=== PATIENT | male | born 1980 | race Caucasian/White ===

== ENCOUNTER 2017-11-04 18:07 | Inpatient (IN) | payer OTHER ==
[~2017-11-04] VITALS: Ht 182.9 cm; Wt 194.7 kg
--- NOTE | 2017-11-04 18:08 | ED.ADGEN ---
Past History Past Medical History: Hypertension, Other Past Surgical History: No Surgical History Alcohol Use: None Drug Use: None Adult General Chief Complaint Chief Complaint "... I was getting really short of breath today... ".. " My legs are swollen... clear up to my groin..." HPI HPI Patient is a 37 year old male who presents with above hx and complaints increased dyspnea, shortness of breath, and fatigue. Patient has not followed by for some years. Possibly 8 years ago he had a stress test where he states nothing was found. Patient since that time is gaining more weight. Patient today was noted he was very short of breath just walking across the room. Patient denies any travel. Patient denies any ill contacts. Patient take anything for his hypertension. There is a family history of onset of cardiac disorders. Review of Systems Review of Systems Constitutional: Denies fever or chills [] Eyes: Denies change in visual acuity, redness, or eye pain [] HENT: Denies nasal congestion or sore throat [] Respiratory: Denies history of shortness of breath [] Cardiovascular: No additional information not addressed in HPI [] GI: Denies abdominal pain, nausea, vomiting, bloody stools or diarrhea [] : Denies dysuria or hematuria [] Musculoskeletal: Denies back pain or joint pain [] Integument: Denies rash or skin lesions [] Neurologic: Denies headache, sensory changes []complaints of generalized weakness Endocrine: Denies polyuria or polydipsia [] All other systems were reviewed and found to be within normal limits, except as documented in this note. Family History Family History Father had early onset of cardiac disorders. Current Medications Current Medications Current Medications Medications (Trade) Dose Ordered Sig/Jody Start Time Stop Time Status Last Admin Dose Admin Lactated Ringer's 1,000 ml @ 100 mls/hr Q10H 11/04/17 18:26 11/05/17 04:25 11/04/17 18:26 100 MLS/HR Allergies Allergies Allergies Coded Allergies Type Severity Reaction Last Updated Verified No Known Drug Allergies 03/08/14 No Physical Exam Physical Exam Constitutional: in acute distress, non-toxic appearance. [] HENT: Normocephalic, atraumatic, bilateral external ears normal, oropharynx moist, no oral exudates, nose normal. [] Eyes: PERRLA, EOMI, conjunctiva normal, no discharge. [] Neck: Normal range of motion, no tenderness, supple, no stridor. [] Cardiovascular: Tachycardia Heart rate regular rhythm, no murmur []PMI to the left Lungs & Thorax: Bilateral breath sounds equal at apex with scattered wheezes on auscultation [] Abdomen: Bowel sounds normal, soft, no tenderness, no masses, no pulsatile masses. [Morbidly obese Skin: Warm, dry, no erythema, no rash. [] Back: No tenderness, no CVA tenderness. [] Extremities: No tenderness, no cyanosis, no clubbing, ROM intact, edema to groin , Bigelow edema in ankles. Venous stasis changes. Neurologic: Alert and oriented X 3, normal motor function, normal sensory function, no focal deficits noted. [] Psychologic: Affect anxious, judgement normal, mood normal. [] Current Patient Data Vital Signs Vital Signs Date Time Temp Pulse Resp B/P (MAP) Pulse Ox O2 Delivery O2 Flow Rate FiO2 11/04/17 18:15 97.1 99 20 97 Room Air EKG EKG My interpretation EKG shows a sinus rhythm at 93 bpm. There is bibasilar P waves and leftward axis. No findings acute STEMI with contralateral changes.[] Radiology/Procedures Radiology/Procedures My interpretation of CXR shows cardiomegaly, increased cephalization, findings consistent with CHF[] Course & Med Decision Making Course & Med Decision Making Pertinent Labs and Imaging studies reviewed. (See chart for details) Presentation, testing and treatment plan with Dr. Macario- will admit for further eval. and tx. [] Final Impression Final Impression 1. Accelerated HTN 2. Dyspnea 3. Obesity Hypoventilation Syndrome 4. Sleep Apnea[] 5. CHF- BNP 4128 6. Elevated Creat. 7. Morbid Obesity Dragon Disclaimer Dragon Disclaimer This electronic medical record was generated, in whole or in part, using a voice recognition dictation system. MATHEW AVILES MD Nov 04, 2017 18:08
[2017-11-04] MEDS ORDERED: IV RINGERS SOLUTION,LACTATED 1,000 ML IV SCH (18:26)
--- NOTE | 2017-11-04 18:29 | EKG ---
[address] [address] Test Date: 2017-11-04 Test Time: 18:24:29 Pat Name: HUE CLEMONS Department: Room: Gender: M Web Ui Developer: LINDA : 1980 Requested By: MATHEW AVILES Order Number: [id number] Reading MD: Aaron Payan MD Measurements Intervals [place] Rate: 93 P: 35 SD: 172 QRS: -18 QRSD: 84 T: 79 QT: 340 QTc: 425 Interpretive Statements SINUS RHYTHM Electronically Signed On 11-05-2017 10:50:48 CDT by Aaron Payan MD
[2017-11-04] MEDS ORDERED: FUROSEMIDE 40 MG/4 ML VIAL IVP ONE ×2 (18:45→19:30)
[2017-11-04] MEDS ORDERED: ASPIRIN 81 MG TAB.CHEW PO ONE (18:45)
[2017-11-04] MEDS ORDERED: METOPROLOL TARTRATE 5 MG/5 ML VIAL. IV ONE (18:45)
[2017-11-04] MEDS ORDERED: NITROGLYCERIN OINT 1 GM PACKET. TP ONE (18:45)
[2017-11-04 19:00] LABS: BASO # 0.1 x10^3/uL (0.0-0.2); BASO % 1 % (0-3); EOS # 0.1 x10^3/uL (0.0-0.7); EOS % 2 % (0-3); HEMATOCRIT 45.8 % (39.0-53.0); LYMPH % 15 % (24-48); MEAN CORPUSCULAR HEMOGLOBIN 27 pg (25-35); MEAN CORPUSCULAR HGB CONC 33 g/dL (31-37); MEAN CORPUSCULAR VOLUME 82 fL (79-100); MONO # 0.6 x10^3/uL (0.0-1.1); MONO % 9 % (0-9); NEUT # 4.9 x10^3uL (1.8-7.7); NEUT % 73 % (31-73); PLATELET COUNT 279 x10^3/uL (140-400); RED CELL DISTRIBUTION WIDTH 16.2 % (11.5-14.5); WHITE BLOOD COUNT 6.7 x10^3/uL (4.0-11.0)
[2017-11-04 19:22] LABS: ALBUMIN 3.6 g/dL (3.4-5.0); ALK PHOS 69 U/L (46-116); ALT (SGPT) 14 U/L (16-63); ANION GAP 6 (6-14); AST (SGOT) 14 U/L (15-37); BLOOD UREA NITROGEN 13 mg/dL (8-26); CALCIUM 8.9 mg/dL (8.5-10.1); CARBON DIOXIDE 28 mmol/L (21-32); CHLORIDE 105 mmol/L (98-107); CREATININE 1.4 mg/dL (0.7-1.3); DIRECT BILIRUBIN 0.2 mg/dL (0.0-0.2); GFR 56.4; GLUCOSE 105 mg/dL (70-99); LIPASE 77 U/L (73-393); MAGNESIUM 1.9 mg/dL (1.8-2.4); POTASSIUM 4.2 mmol/L (3.5-5.1); SODIUM 139 mmol/L (136-145); TOTAL BILIRUBIN 1.1 mg/dL (0.2-1.0)
--- NOTE | 2017-11-04 20:45 | NUR ---
PT ARRIVED TO THE UNIT AT APPROXIMATELY 2044, FROM ED, ACCOMPANIED BY STAFF MEMBERS. PT IS ALERT AND ORIENT TIMES FOUR. OSORIO/ DENIES PAIN. PT'S WT TOTALS 214 KG. LOWER EXTREMITIES WERE ASSESSED BEING LEATHERY/DUSKY AND EDEMATOUS. GENERALIZED EDEMA PRESENT. PT C/O LOWER ABD AREA BEING "TIGHT AND HARD". PT HAS HAD SOME FLUID RETENTION, IVP LASIX GIVEN WITH MINIMAL RESULTS. SR PER MONITOR. BP WAS ELEVATED UPON ARRIVAL BUT DID TREND DOWNWARDS AFTER GETTING SETTLED. DENIES N/V. GOES GET SOB WITH EXERTION, SLOW TO RECOVER TO BASE LINE. CARDIO CONSULT PENDING FOR THE AM. PT REMAIN NPO UNTIL AFTER SEEING CV. CURRENTLY, SLOW PROGRESS TOWARDS DC GOALS. WILL CONTINUE TO MONITOR.
[2017-11-04 20:46] VITALS: BP 219/107
[2017-11-04] MEDS: ENOXAPARIN ** NOTE DOSE ** SYRINGE SQ SCH (21:00)
[2017-11-04 21:07] LABS: AMPHETAMINE/METHAMPHETAMINE NEG (NEG); BARBITURATES NEG (NEG); BENZODIAZEPINES NEG (NEG); CANNABINOIDS NEG (NEG); COCAINE NEG (NEG); METHADONE NEG (NEG); OPIATES NEG (NEG); PHENCYCLIDINE NEG (NEG)
[2017-11-04 21:25] VITALS: BP 202/96
[2017-11-04 21:27] LABS: BILIRUBIN,URINE NEG (NEG); CLARITY,URINE CLEAR; COLOR,URINE STRAW; GLUCOSE,URINE NEG (NEG); NITRITE,URINE NEG (NEG); UROBILINOGEN,URINE 0.2 mg/dL (0.2 mg/dL)
[2017-11-04 21:28] LABS: BACTERIA,URINE 0 /HPF (0-FEW); HYALINE CASTS, URINE MOD /HPF; SQUAMOUS EPITHELIAL CELL,UR FEW /LPF; WBC,URINE OCC /HPF (0-4)
[2017-11-04 23:35] VITALS: BP 187/74
[2017-11-05] VITALS (18 sets, daily range): BP systolic 136–187; BP diastolic 66–124
[2017-11-05] MEDS ORDERED: ASPI-612 PO (01:13)
--- NOTE | 2017-11-05 04:50 | NUR ---
Naima DRAKE WAS NOTIFIED OF PT'S BP (185/122). ORDER RECEIVED FOR LABETALOL. NURSING INTERVENTION FOR RECHECK OF BP TWO HOURS POST PO LABETALOL...SEE ORDERS
[2017-11-05] MEDS: LABETALOL HCL 100 MG TABLET PO SCH ×4 (05:03→21:04)
[2017-11-05 06:18] LABS: BASO % 1 % (0-3); CALCIUM 8.7 mg/dL (8.5-10.1); CREATININE 1.3 mg/dL (0.7-1.3); EOS # 0.1 x10^3/uL (0.0-0.7); EOS % 2 % (0-3); GFR 61.5; HEMATOCRIT 41.6 % (39.0-53.0); HEMOGLOBIN 13.6 g/dL (13.0-17.5); LYMPH # 0.9 x10^3/uL (1.0-4.8); LYMPH % 14 % (24-48); MEAN CORPUSCULAR HEMOGLOBIN 27 pg (25-35); MEAN CORPUSCULAR HGB CONC 33 g/dL (31-37); MEAN CORPUSCULAR VOLUME 81 fL (79-100); MONO # 0.8 x10^3/uL (0.0-1.1); MONO % 12 % (0-9); NEUT # 4.7 x10^3uL (1.8-7.7); NEUT % 71 % (31-73); PLATELET COUNT 248 x10^3/uL (140-400); POTASSIUM 3.4 mmol/L (3.5-5.1); RED BLOOD COUNT 5.13 x10^6/uL (4.30-5.70); RED CELL DISTRIBUTION WIDTH 16.3 % (11.5-14.5); WHITE BLOOD COUNT 6.7 x10^3/uL (4.0-11.0)
--- NOTE | 2017-11-05 06:26 | NUR ---
CARDIOLOGY CONSULT CALLED TO DR. LIMA. L/M WITH ANSWERING SERVICE, AWAITING CALL BACK.
--- NOTE | 2017-11-05 07:59 | RAD ---
Chest, 2 views, 11/04/2017: HISTORY: Dyspnea The heart is enlarged. The pulmonary vascularity is congested. There are hazy perihilar opacities with loss of vascular margination suggesting mild perihilar-perivascular pulmonary edema. No pleural fluid is seen. IMPRESSION: Congestive heart failure with mild parahilar-perivascular pulmonary edema. Electronically signed by: Wale Downing MD (11/05/2017 7:56 AM) [facility]
--- NOTE | 2017-11-05 08:30 | NUR ---
Patient arrived from [facility] Med/Surg floor. Report received from Pepper Patel RN. Patient placed into bed, full complement of monitors placed and assessment performed. Awaiting Diltiazem gtt from Pharmacy.
[2017-11-05] MEDS ORDERED: dilTIAZem VIAL 125 MG in IV DEXTROSE 5% 100 ML IV PRN (09:00)
--- NOTE | 2017-11-05 09:00 | NUR ---
NSG NOTE; TRANSFER TO ICU PT RECEIVED LABATOLOL AT 0500 FOR ELEVATED BP WITH NO RESULTS. BP 183/[address] STOVALL NOTIFIED AND ORDERS TRANSFER TO ICU WITH SANCHEZ IVY. REPORT CALLED TO ANGELINA RN AT 0822 PT TRANSFERRED TO ICU 3 AT 0832.
--- NOTE | 2017-11-05 09:33 | PDOC2 ---
RADHA SANTIAGO APRN 11/05/17 0933: CONSULT Date of Admission DATE: 11/05/17 TIME: 09:33 Reason for Consult: chf Problem List Problems Medical Problems: (1) Dyspnea Status: Acute History of Present Illness Mr Garcia is a morbidly obese 37 year old male who presented with shortness of breath. He reports that he has dyspnea on exertion at baseline but symptoms had worsened over the last couple weeks. Yesterday he took out the trash and was unable to catch his breath for over an hour so came to ED. He reports normally using 1-2 pillows for comfort but needing 1 more over the last couple weeks. He has chronic edema in his extremities but reports increase in legs as well as abdomen over the last 2 weeks. He denies chest pain, palpitations, lightheadedness or syncope. He denies any recent illness. Past Medical History he denies any significant history, takes no medications and has not seen a primary provider in several years Past Surgical History: Tonsillectomy Family History HTN, HLD, possible atrial fibrillation Social History He denies smoking, ETOH or illicit drugs Current Medications Current Medications Aspirin (Children'S Aspirin) 324 mg 1X ONCE PO Last administered on 11/04/17at 18:41; Start 11/04/17 at 18:45; Stop 11/04/17 at 18:46; Status DC Lactated Ringer's 1,000 ml @ 100 mls/hr Q10H IV Last administered on 11/04/17at 18:26; Start 11/04/17 at 18:26; Stop 11/05/17 at 04:25; Status DC Furosemide (Lasix) 40 mg 1X ONCE IVP Last administered on 11/04/17at 18:48; Start 11/04/17 at 18:45; Stop 11/04/17 at 18:46; Status DC Nitroglycerin (Nitro-Bid Oint) 1 inch 1X ONCE TP Last administered on at 18:44; Start 11/04/17 at 18:45; Stop 11/04/17 at 18:46; Status DC Metoprolol Tartrate (Lopressor Vial) 5 mg 1X ONCE IV Last administered on at 18:46; Start 11/04/17 at 18:45; Stop 11/04/17 at 18:46; Status DC Enoxaparin Sodium (Lovenox 150mg Syringe) 150 mg Q12HR SQ Last administered on 11/04/17at 21:00; Start 11/04/17 at 21:00 Aspirin (Children'S Aspirin) 81 mg DAILY PO ; Start 11/05/17 at 09:00 Furosemide (Lasix) 40 mg 1X ONCE IVP Last administered on 11/04/17at 21:37; Start 11/04/17 at 19:30; Stop 11/04/17 at 19:31; Status DC Labetalol HCl (Trandate) 100 mg TID PO Last administered on 11/05/17at 05:03; Start 11/05/17 at 05:00 Diltiazem HCl 125 mg/Dextrose 125 ml @ 5 mls/hr CONT PRN IV SEE I/O RECORD; Start 11/05/17 at 09:00 Active Scripts Active Reported Aspirin Ec (Aspirin) 81 Mg Tablet. 1 Tab PO DAILY Allergies: Coded Allergies: No Known Drug Allergies (Unverified , 03/08/14) Review of System as per HPI General: Alert, Oriented X3, Cooperative, No acute distress, Other (morbidly obese) HEENT: Atraumatic, EOMI Lungs: Other (decreased bilaterally) Heart: Regular rate, Normal S1, Normal S2, Other (no obvious murmurs, no obvious gallops, clicks or rubs. Heart tones are muffeled. ) Abdomen: Normal bowel sounds, No tenderness, Other (abdomen firm and obese) Extremities: No cyanosis, Other (Chronic non pitting edema with venous stasis changes bilateral lower extremities. ) Neuro: Normal speech, Strength at 5/5 X4 ext Psych/Mental Status: Mental status NL, Mood NL VITALS Vital Signs Date Time Temp Pulse Resp B/P (MAP) Pulse Ox O2 Delivery O2 Flow Rate FiO2 11/05/17 05:03 80 187/122 11/05/17 04:54 98.0 18 95 Room Air Labs Laboratory Tests Test 11/04/17 18:39 11/04/17 20:03 11/05/17 05:48 White Blood Count 6.7 x10^3/uL (4.0-11.0) 6.7 x10^3/uL (4.0-11.0) Red Blood Count 5.60 x10^6/uL (4.30-5.70) 5.13 x10^6/uL (4.30-5.70) Hemoglobin 15.0 g/dL (13.0-17.5) 13.6 g/dL (13.0-17.5) Hematocrit 45.8 % (39.0-53.0) 41.6 % (39.0-53.0) Mean Corpuscular Volume 82 fL (79-100) 81 fL (79-100) Mean Corpuscular Hemoglobin 27 pg (25-35) 27 pg (25-35) Mean Corpuscular Hemoglobin Concent 33 g/dL (31-37) 33 g/dL (31-37) Red Cell Distribution Width 16.2 % (11.5-14.5) 16.3 % (11.5-14.5) Platelet Count 279 x10^3/uL (140-400) 248 x10^3/uL (140-400) Neutrophils (%) (Auto) 73 % (31-73) 71 % (31-73) Lymphocytes (%) (Auto) 15 % (24-48) 14 % (24-48) Monocytes (%) (Auto) 9 % (0-9) 12 % (0-9) Eosinophils (%) (Auto) 2 % (0-3) 2 % (0-3) Basophils (%) (Auto) 1 % (0-3) 1 % (0-3) Neutrophils # (Auto) 4.9 x10^3uL (1.8-7.7) 4.7 x10^3uL (1.8-7.7) Lymphocytes # (Auto) 1.0 x10^3/uL (1.0-4.8) 0.9 x10^3/uL (1.0-4.8) Monocytes # (Auto) 0.6 x10^3/uL (0.0-1.1) 0.8 x10^3/uL (0.0-1.1) Eosinophils # (Auto) 0.1 x10^3/uL (0.0-0.7) 0.1 x10^3/uL (0.0-0.7) Basophils # (Auto) 0.1 x10^3/uL (0.0-0.2) 0.0 x10^3/uL (0.0-0.2) Prothrombin Time 11.6 SEC (9.4-11.4) Prothromb Time International Ratio 1.1 (0.9-1.1) Activated Partial Thromboplast Time 28 SEC (23-33) D-Dimer (Bella) 0.59 mg/L (0.00-0.50) Sodium Level 139 mmol/L (136-145) 132 mmol/L (136-145) Potassium Level 4.2 mmol/L (3.5-5.1) 3.4 mmol/L (3.5-5.1) Chloride Level 105 mmol/L (98-107) 101 mmol/L (98-107) Carbon Dioxide Level 28 mmol/L (21-32) 30 mmol/L (21-32) Anion Gap 6 (6-14) 1 (6-14) Blood Urea Nitrogen 13 mg/dL (8-26) 12 mg/dL (8-26) Creatinine 1.4 mg/dL (0.7-1.3) 1.3 mg/dL (0.7-1.3) Estimated GFR (Cockcroft-Gault) 56.4 61.5 Glucose Level 105 mg/dL (70-99) 98 mg/dL (70-99) Calcium Level 8.9 mg/dL (8.5-10.1) 8.7 mg/dL (8.5-10.1) Magnesium Level 1.9 mg/dL (1.8-2.4) Total Bilirubin 1.1 mg/dL (0.2-1.0) Direct Bilirubin 0.2 mg/dL (0.0-0.2) Aspartate Amino Transf (AST/SGOT) 14 U/L (15-37) Alanine Aminotransferase (ALT/SGPT) 14 U/L (16-63) Alkaline Phosphatase 69 U/L (46-116) Creatine Kinase 35 U/L (39-308) Creatine Kinase MB (Mass) < 0.5 ng/mL (0.0-3.6) Creatine Kinase MB Relative Index 1.4 % (0-4) Troponin I Quantitative < 0.017 ng/mL (0-0.055) TO-Ydz-X-Type Natriuretic Peptide 4128 pg/mL (0-124) Total Protein 7.0 g/dL (6.4-8.2) Albumin 3.6 g/dL (3.4-5.0) Lipase 77 U/L (73-393) Urine Collection Type Unknown Urine Color Straw Urine Clarity Clear Urine pH 5.5 Urine Specific [place] <=1.005 Urine Protein Neg (NEG-TRACE) Urine Glucose (UA) Neg mg/dL (NEG) Urine Ketones (Stick) Neg mg/dL (NEG) Urine Blood Neg (NEG) Urine Nitrite Neg (NEG) Urine Bilirubin Neg (NEG) Urine Urobilinogen Dipstick 0.2 mg/dL (0.2 mg/dL) Urine Leukocyte Esterase Neg (NEG) Urine RBC 6-10 /HPF (0-2) Urine WBC Occ /HPF (0-4) Urine Squamous Epithelial Cells Few /LPF Urine Bacteria 0 /HPF (0-FEW) Urine Hyaline Casts Mod /HPF Urine Mucus Mod /LPF Urine Opiates Screen Neg (NEG) Urine Methadone Screen Neg (NEG) Urine Barbiturates Neg (NEG) Urine Phencyclidine Screen Neg (NEG) Urine Amphetamine/Methamphetamine Neg (NEG) Urine Benzodiazepines Screen Neg (NEG) Urine Cocaine Screen Neg (NEG) Urine Cannabinoids Screen Neg (NEG) Urine Ethyl Alcohol Neg (NEG) Images CXR - IMPRESSION: Congestive heart failure with mild parahilar-perivascular pulmonary edema. EKG - SR, LAD, NS T abn. Assessment/Plan 1. Acute heart failure - echo for LV function. continue diuresis. 2. Accelerated hypertension - add ACEI, Prn hydralazine and change cardizem to cardene drip as needed. Renal arterial duplex. 3. hypokalemia - replace 4. morbid obesity - weight reduction strongly encouraged. 5. venous stasis - eval outpatient Will continue diuresis, adjust antihypertensives as above, check echo and renal duplex, will check lipids, A1C, repeat trop. Further recs after echo. RIOS CORONA MD 11/05/17 1407: CONSULT Assessment/Plan Patient seen and examined. Agree with [facility]'s assessment and plan. Continue diuresis for congestive heart failure most probably acute on chronic diastolic We will titrate oral antihypertensives and wean Cardene off as tolerated Check 2-D echo to assess LV systolic function Replace potassium Plan outpatient evaluation for venous insufficiency Thank you for your consultation RADHA SANTIAGO APRN Nov 05, 2017 09:33 RIOS CORONA MD Nov 05, 2017 14:07
[2017-11-05] MEDS ORDERED: hydrALAZINE 20 MG/ML VIAL. IV PRN (09:45)
[2017-11-05] MEDS: POTASSIUM CHLORIDE 20 MEQ TABLET.ER. PO SCH ×2 (10:01→21:04)
[2017-11-05] MEDS: LISINOPRIL 10 MG TABLET PO SCH (10:02)
[2017-11-05] MEDS: ASPIRIN 81 MG TAB.CHEW PO SCH (10:02)
[2017-11-05] MEDS: FUROSEMIDE 40 MG/4 ML VIAL IVP SCH ×2 (10:03→14:10)
[2017-11-05] MEDS: ENOXAPARIN ** NOTE DOSE ** SYRINGE SQ SCH ×2 (10:03→21:05)
--- NOTE | 2017-11-05 12:20 | HP ---
ADMIT DATE: 11/05/2017 HISTORY OF PRESENT ILLNESS: The patient is a 37-year-old male patient, who came to the Emergency Room complaining of increased shortness of breath, fatigue. He apparently has not seen any doctor for almost 8 years. He normally has some shortness of breath on exertion that usually resolves by the time he sits for few seconds, but yesterday he went out to take the trash out and he could not get his breathing back. He was brought to the Emergency Room, was found to have extremely high blood pressure. His chest x-ray showed that the heart is enlarged. Pulmonary vascularity is congested. There are hazy perihilar opacities with loss of vascular margination suggesting mild perihilar cardiovascular, pulmonary edema, but no pleural fluid. He was treated with IV Lasix as well IV metoprolol and nitro paste and was admitted for further evaluation and treatment. PAST MEDICAL HISTORY: Unremarkable apart from morbid obesity. PAST SURGICAL HISTORY: Significant for tonsillectomy. ALLERGIES: He has no known drug allergies. MEDICATIONS: He is only on baby aspirin. He denied taking any nonsteroidal anti-inflammatory medication. FAMILY HISTORY: He has one sister older and healthy. His brother at age of 28 because of drug overdose. Mother at age of 52 because of leukemia. His father is still alive at age of 69, is known to have hypertension, hyperlipidemia. SOCIAL HISTORY: He is single, no children. He does not smoke, does not drink alcohol or use any recreational drugs. He works in the [employer]. REVIEW OF SYSTEMS: The patient denied any blurring of vision, cataract, glaucoma or macular degeneration. Denied any earache, tinnitus or sensorineural deafness. Denied any nosebleeds, stuffy nose or postnasal drip. Denied any sore throat, sore tongue, toothache, hoarseness of voice or difficulty swallowing. Denied any nausea, vomiting, diarrhea or constipation. Denied any hematemesis, melena or hematochezia. Denied any dysuria, frequency or hematuria. Denied any chest pain. Did complain of shortness of breath. Denied any orthopnea or paroxysmal nocturnal dyspnea, although he stated that he sleeps usually on 2 pillows. PHYSICAL EXAMINATION: GENERAL: On arrival to the Emergency Room, he was slightly tachypneic. No pallor, jaundice, cyanosis or thyromegaly. No jugular venous distension. Bilateral lower limb edema. VITAL SIGNS: His heart rate was 99, blood pressure was 270/150, respiratory rate was 20, temperature was 97.1, oxygen saturation was 97% on room air. HEAD, EYES, EARS, NOSE AND THROAT: Showed normocephalic, atraumatic. NECK: Supple. HEART: Showed normal first and second heart sounds. No gallop, rub or murmur. CHEST: Clear to auscultation. No crepitation or rhonchi. ABDOMEN: Distended, soft, nontender. No guarding or rigidity. No organomegaly. All hernial orifice intact. Bowel sounds normal. NEUROLOGIC: He was awake, alert, responding appropriately. All cranial nerves intact. EXTREMITIES: He moves extremities without difficulty. PSYCHOLOGICAL: His affect is anxious. Judgment is normal with normal mood. LABORATORY DATA: Showed a white cell count of 6700, hemoglobin 15, hematocrit 45, MCV 82 and platelet count of 279,000. His chemistry showed a serum sodium 139, potassium 4.2, chloride 105, bicarbonate 28, anion gap of 6, BUN 13, creatinine 1.4, estimated GFR was 56 mL per minute. His glucose was 105, calcium was 8.9, magnesium was 1.9. Total bilirubin, AST, ALT, alkaline phosphatase were normal. Beta natriuretic peptide 4128. Total protein was 7, albumin was 3.6. Two sets of cardiac enzymes showed troponin to be less than 0.017. His chest x-ray showed that the heart is enlarged. The pulmonary vascularity congested. There are hazy perihilar opacities with loss of vascular margination suggesting mild perihilar perivascular pulmonary edema, no pleural fluid is seen. ASSESSMENT AND PLAN: The patient was admitted to [address] [place] [address] on telemetry bed to achieve a better control of blood pressure and to treat his congestive heart failure with most likely due to left ventricular diastolic dysfunction. We will also consult the cardiology team. YULISA STOVALL MD DR: MAYRA/la nena JOB#: [id number] / [id number]
--- NOTE | 2017-11-05 13:40 | NUR ---
Patient update. Cardiazem gtt DC'd at 1000. PO antihypertensives given at that time (see MAR) as well as IV Hydralazine. BP failed to decrease below SBP 160mmHG. A Cardene gtt was initiated at 5mg/hr. Patients BP decreased nicely into the 140-150 range. I was stopped around 1330 for a SBP of 109. His current pressures are in the 150's. He has continued to diurese, voiding nearly 3000 ml since his admission to the ICU.
[2017-11-05 14:55] LABS: THYROID STIM HORMONE (TSH) 5.309 uIU/mL (0.358-3.740)
[2017-11-05] MEDS ORDERED: PERFLUTREN PROTEIN-A MICROSPHR 0.22 MG/ML 3 ML VIAL. IV ONE (16:00)
--- NOTE | 2017-11-05 21:27 | PN ---
DATE: 11/05/2017 SUBJECTIVE: The patient is resting, slightly propped up in bed, no apparent distress, was admitted yesterday with hypertensive urgency as well as congestive heart failure. He was treated with IV antibiotic, IV fluid. He was treated with IV diuretics and also metoprolol and nitroglycerin patch without much improvement, and this morning, he was transferred to the ICU and was started on Cardene drip, was given also labetalol 100 mg 3 times a day and also we added hydralazine and lisinopril. He was also given IV Lasix and we did consult the cardiology team and arrangement is made for him to have an echocardiogram. So far, he has 2 sets of cardiac enzymes that ruled out myocardial infarction. When I examined him this morning, he was resting, slightly propped up in bed, in no apparent respiratory distress, awake, alert. On questioning him, he said that he is feeling much, much better than yesterday, now able to breathe easily. He has no chest pain. No cough or phlegm. His blood pressure is much better controlled around 160s systolic. PHYSICAL EXAMINATION: GENERAL: He looked well and was clearly in no apparent respiratory distress, pale, but no jaundice, cyanosis or thyromegaly. No jugular venous distention. No limb edema. VITAL SIGNS: His heart rate was 81, blood pressure was 173/87, temperature was 98.4, respiratory rate 28 and oxygen saturation was 95% on room air. HEAD, EYES, EARS, NOSE AND THROAT: Showed normocephalic, atraumatic. NECK: Supple. HEART: Showed normal first and second heart sounds. No gallop, rub or murmur. CHEST: Clear to auscultation. No crepitation or rhonchi. ABDOMEN: Distended, soft, nontender. NEUROLOGIC: He was awake, alert, responding appropriately. Cranial nerves intact. He moves extremities without difficulty. He ambulates without assistive devices. LABORATORY DATA: His serum sodium was 132, potassium 3.4, chloride 101, bicarbonate 30, anion gap of 1, BUN 12, creatinine 1.3, estimated GFR was 61 mL per minute. His glucose was 98, calcium was 8.7. Two sets of cardiac enzymes that ruled out myocardial infarction. His white cell count was 6700, hemoglobin 13.6, hematocrit 41.6, MCV 81 and platelet count 248,000. His prothrombin time 11.6, INR 1.1, aPTT . D-dimer was 0.59. Urinalysis was essentially unremarkable and urine toxicology screen was negative. ASSESSMENT: This is a 37-year-old male patient who was admitted with: 1. Accelerated hypertension. 2. Shortness of breath, most likely aawko-zh-swhhkmb diastolic congestive heart failure. 3. Morbid obesity hypoventilation syndrome, morbid obesity. He has also either chronic kidney disease or mvrph-[id number] kidney disease. PLAN: To continue with Cardene drip, titrate to maintain a mean arterial pressure of around 100 to start with, and gradually we are treating him with lisinopril and labetalol as well as hydralazine. Continue with IV Lasix. YULISA STOVALL MD DR: MAYRA/la nena JOB#: [id number] / [id number]
[2017-11-06] VITALS (13 sets, daily range): BP systolic 140–179; BP diastolic 67–114
[2017-11-06 06:32] LABS: HEMATOCRIT 40.7 % (39.0-53.0); HEMOGLOBIN 13.3 g/dL (13.0-17.5); RED BLOOD COUNT 5.02 x10^6/uL (4.30-5.70); RED CELL DISTRIBUTION WIDTH 16.5 % (11.5-14.5)
[2017-11-06 06:46] LABS: ALBUMIN 3.3 g/dL (3.4-5.0); CALCIUM 8.7 mg/dL (8.5-10.1); CREATININE 1.2 mg/dL (0.7-1.3); GFR 67.4; POTASSIUM 3.6 mmol/L (3.5-5.1); TOTAL BILIRUBIN 2.1 mg/dL (0.2-1.0); TOTAL PROTEIN 6.5 g/dL (6.4-8.2)
--- NOTE | 2017-11-06 07:16 | RAD ---
MR#: [id number] Date of Study: 11/05/2017 Ordering Physician: RADHA SANTIAGO, Referring Physician: YULISA STOVALL Tech: Dimple Lobo, WARNER, RVT, RTR APPROVED REPORT Patient Location: IN-PATIENT Indications Uncontrolled HTN Significantly limited study due to body habitus On the right the middle and distal renal arteries demonstrate mildly elevated velocities at a peak of 148 cm/s. The proximal right renal artery is not visualized. The left renal artery is not visualized . Finally, the abdominal aorta is also not able to be visualized despite positional changes. This is likely related to the patient's morbid obesity. The right kidney on limited grayscale images appears to be mildly enlarged suggestive of hydronephrosis. Again the left kidney was not visualized. The rig ht kidney measures 16.2 x 8 x 8 cm. Critical Notification Critical Value: No <Conclusion> Significantly limited study due to body habitus, consider CT scan of the abdomen with contrast and/or MRI for evaluation of renal artery stenosis and further evaluation of possible hydronephrosis of the right kidney. Clinical correlation. Signed by : Aaron Payan, Electronically Approved : 11/06/2017 07:16:10
--- NOTE | 2017-11-06 07:24 | CARD ---
MR#: [id number] Date of Study: 11/05/2017 Ordering Physician: RADHA SANTIAGO, Referring Physician: YULISA STOVALL, Tech: JARRED Del Cid APPROVED REPORT EXAM: Two-dimensional and M-mode echocardiogram with Doppler and color Doppler. Other Information Quality : Poor Technically limited study due to morbid obesity. INDICATION Dyspnea Hypertension/HCVD Congestive Heart Failure Echo Enhancing Agent Indication: Endocardial border delineation Agent/Amount Used: [id number] 2D DIMENSIONS Left Atrium(2D)4.8 (1.6-4.0cm)IVSd1.3 (0.7-1.1cm) LVDd7.2 (3.9-5.9cm)LVOT Diameter2.3 (1.8-2.4cm) PWd1.6 (0.7-1.1cm)LVDs5.8 (2.5-4.0cm) FS (%) 20.0 %SV93.4 ml LVEF(%)43.0 (>50%) Tricuspid Valve TR P. [id number] TR Peak Gr.[id number] LEFT VENTRICLE The Left Ventricle is mildly dilated. There is moderate concentric left ventricular hypertrophy. The systolic function is moderately impaired. The Ejection Fraction is grossly 40%. Significantly limited images despite contrast use. Moderate global hypokinesis. RIGHT VENTRICLE The right ventricle is not well visualized. ATRIA The left atrium is moderately dilated. The right atrium is not well visualized. Atrial septum not wel l visualized. AORTIC VALVE The aortic valve is mildly calcified. There is no significant aortic valvular stenosis. There is no a ortic valvular vegetation. MITRAL VALVE The mitral valve is not well visualized. There is no mitral valve stenosis. Doppler and Color Flow re vealed no mitral valve regurgitation noted. TRICUSPID VALVE The tricuspid valve is not well visualized. Doppler and Color Flow revealed trace tricuspid regurgita tion. There is moderate pulmonary hypertension. PASP is 56 mmHg. There is no tricuspid valve stenosis . PULMONIC VALVE The pulmonic valve is not well visualized. GREAT VESSELS The aortic root is not well visualized. Due to poor image quality, the IVC could not be assessed. PERICARDIAL EFFUSION There is no evidence of significant pericardial effusion. Critical Notification Critical Value: No <Conclusion> The systolic function is moderately impaired. The Ejection Fraction is grossly 40%. Significantly rae ited images despite contrast use. Doppler and Color Flow revealed trace tricuspid regurgitation. There is moderate pulmonary hypertensi on. PASP is 56 mmHg. Signed by : Aaron Payan, Electronically Approved : 11/06/2017 07:23:33
[2017-11-06] MEDS: FUROSEMIDE 40 MG/4 ML VIAL IVP SCH ×2 (08:07→14:43)
[2017-11-06] MEDS: POTASSIUM CHLORIDE 20 MEQ TABLET.ER. PO SCH ×2 (08:08→20:21)
[2017-11-06] MEDS: LISINOPRIL 10 MG TABLET PO SCH (08:08)
[2017-11-06] MEDS: LABETALOL HCL 100 MG TABLET PO SCH ×3 (08:09→20:21)
[2017-11-06] MEDS: ENOXAPARIN ** NOTE DOSE ** SYRINGE SQ SCH ×2 (08:10→20:21)
[2017-11-06] MEDS: ASPIRIN 81 MG TAB.CHEW PO SCH (08:12)
--- NOTE | 2017-11-06 10:00 | NUR ---
PT vitals remain stable throughout night and this morning. Remains of Cardene gtt. Patient states he is feeling much better, states he is not as short of breath as when he came in. Denies pain or discomfort at this time. Will continue to monitor.
[2017-11-06] MEDS ORDERED: IOHEXOL 300 MG/ML 75 ML VIAL. IV ONE (14:10)
--- NOTE | 2017-11-06 14:44 | NUR ---
Patient back from CT scan, per Dr. Macario await results and patient may need to transfer or can discharge home.
--- NOTE | 2017-11-06 15:07 | RAD ---
EXAM: Abdomen CT angiogram with and without contrast. HISTORY: Pain. Abnormal ultrasound. TECHNIQUE: Computed tomographic images of the abdomen were obtained prior to and following the administration of 75 cc Omnipaque 350 intravenous contrast. Three-dimensional maximum intensity projection images were obtained. *One or more of the following individualized dose reduction techniques were utilized for this examination: 1. Automated exposure control. 2. Adjustment of the mA and/or kV according to patient size. 3. Use of iterative reconstruction technique. COMPARISON: Sonogram dated 11/05/2017. FINDINGS: The exam is extremely limited due to morbid obesity and inadequate contrast opacification during the angiographic portion of the exam. Evaluation of the lower thorax demonstrates a 3 mm and 1 mm nodules within the right middle lobe. There is cardiomegaly. There is no pleural effusion or pneumothorax. There is hepatomegaly. The spleen is normal in size. There is a stone within a contracted gallbladder. The pancreas and adrenal glands are unremarkable. No abnormally thickened or dilated loop of bowel is seen. There are few colonic diverticula. There is no lymphadenopathy. There are degenerative changes throughout the visualized thoracolumbar spine. There is no suspicious osseous lesion. There are nonobstructing left renal stones, the largest of which measures 4 mm. There are extensive bilateral renal parapelvic cysts. There is a 2.6 cm left upper pole renal cyst. There is a 4.0 cm right lower pole renal cyst. No solid renal lesion is seen. There is no evidence of obstructive uropathy. The aorta is normal in caliber. There is partially calcified atherosclerotic plaque within the infrarenal abdominal aorta and left common iliac artery. There are single renal arteries. The exam is not diagnostic for renal artery stenosis due to suboptimal contrast opacification during the angiographic portion of the exam. IMPRESSION: 1. Extremely limited exam due to morbid obesity and inadequate contrast opacification during the angiographic portion of the exam. The exam is not diagnostic for renal artery stenosis. 2. Extensive bilateral renal parapelvic cysts and simple appearing cortical cysts. No clear solid lesion is seen and there is no obstructive uropathy. 3. Nonobstructing left renal stones, the largest of which measures 4 mm. 4. Tiny right middle lobe pulmonary nodules, the largest of which measures 3 mm and is likely a faintly calcified granuloma. 5. Cholelithiasis. 6. Colonic diverticulosis. Electronically signed by: Concepcion Martinez MD (11/06/2017 3:04 PM) [facility]
--- NOTE | 2017-11-06 17:00 | PN ---
DATE: 11/06/2017 SUBJECTIVE: The patient is sitting comfortably in his recliner, in no apparent distress, has no more shortness of breath. His blood pressure is well controlled. Ultrasound, renal artery duplex was done and it showed that the patient has significantly limited study due to body habitus on the right, the middle and distal renal arteries demonstrate mildly elevated velocities at the peak of 148 cm/sec. The proximal right renal artery is not visualized. The left renal artery is not visualized. Finally, the abdominal aorta is not able to be visualized, despite positional changes. This is likely related to the patient's body habitus, the right kidney is limited and on limited-grayscale images appears to be mildly enlarged suggestive of hydronephrosis. Left kidney was not visualized. Right kidney measures 16 x 8 x 8 cm and the cell phone repair technician recommended either a CT scan of the abdomen with contrast and/or MRI of the evaluation of renal artery stenosis and further evaluation for possible hydronephrosis and/or renal artery for atrophic left kidney with ____ hypertrophy. PHYSICAL EXAMINATION: GENERAL: When I examined him today, he looked well and was clearly, in no apparent respiratory distress, pale but not jaundiced, cyanosed. No lymphadenopathy, no thyromegaly. No jugular venous distention. No limb edema. VITAL SIGNS: Her heart rate was 84, blood pressure was 153/76, temperature was 98.2, respiratory rate 20, and oxygen saturation was 97% on room air. HEAD, EYES, EARS, NOSE AND THROAT: Showed normocephalic, atraumatic. NECK: Supple. HEART: Showed normal first and second sounds. No gallop, rub or murmur. CHEST: Clear to auscultation. No crepitation or rhonchi. ABDOMEN: Markedly distended, soft, nontender. No guarding or rigidity. No organomegaly. All hernial orifice intact. Bowel sounds normal. NEUROLOGIC: He was awake, alert, responding appropriately. All cranial nerves intact. He moves all extremities without difficulty. He ambulates without assistance or assistive devices. His intake over the last 24 hours was 1500, output was 6500. LABORATORY DATA: As of this morning, his white cell count was 6000, hemoglobin 13.3, hematocrit 40, MCV 81 and platelet count of 259,000. Serum sodium 142, potassium 3.6, chloride 104, bicarbonate 31, anion gap of 7, BUN 10, creatinine 1.2, estimated GFR was 67 mL per minute. His glucose was 97, calcium was 8.7. Total bilirubin 2.1. AST, ALT, alkaline phosphatase were normal. Total protein was 6.5, albumin was 3.3. TSH was slightly elevated at 5.309. Serum triglycerides were 78. Total cholesterol 161, LDL was 119, VLDL was 15, and HDL cholesterol was 27 and the ratio was 5. Urinalysis was unremarkable. ASSESSMENT: 1. Accelerated hypertension, improving shortness of breath, likely due to acute on chronic diastolic congestive heart failure, resolving. He did have an echocardiogram, which showed that the patient has ____ function moderately impaired, ejection fraction is grossly 40%, significantly limited images despite contrast used Doppler and color flow revealed trace tricuspid regurgitation. There is moderate pulmonary hypertension with pulmonary artery systolic pressure of 56 mmHg. 2. Morbid obesity, hypoventilation syndrome. 3. Obstructive sleep apnea. 4. Acute on chronic kidney disease, it seems that his kidney function is improved. His creatinine is down to 1.2 mg/dL. PLAN: ____ so he is now on Cardizem. He is on lisinopril 10 mg once a day, hydralazine. He is on labetalol 100 mg 3 times a day, and Lovenox 150 mg twice a day. YULISA STOVALL MD DR: MAYRA/la nena JOB#: [id number] / [id number]
[2017-11-07 04:58] VITALS: BP 153/83
--- NOTE | 2017-11-07 04:59 | NUR ---
Pt moved to 1So room 117, remains telemetry status. Ambulated independently. All belongings with pt. BP stable this AM. Denies any pain or SOA. Call light in reach.
[2017-11-07 06:28] LABS: CALCIUM 8.7 mg/dL (8.5-10.1); CREATININE 1.2 mg/dL (0.7-1.3); GFR 67.4; POTASSIUM 3.5 mmol/L (3.5-5.1)
[2017-11-07] MEDS: LABETALOL HCL 100 MG TABLET PO SCH (08:17)
[2017-11-07] MEDS: POTASSIUM CHLORIDE 20 MEQ TABLET.ER. PO SCH (08:18)
[2017-11-07] MEDS: LISINOPRIL 10 MG TABLET PO SCH (08:18)
[2017-11-07] MEDS: FUROSEMIDE 40 MG/4 ML VIAL IVP SCH (08:19)
[2017-11-07] MEDS: ASPIRIN 81 MG TAB.CHEW PO SCH (08:20)
[2017-11-07] MEDS: ENOXAPARIN ** NOTE DOSE ** SYRINGE SQ SCH (08:31)
--- NOTE | 2017-11-07 09:00 | NUR ---
Patient feeling much better today, denies SOA when getting up and walking throughout room or hallway. Plan is to dc home today. Brittaney MAYFIELD here to see patient. Hydralazine given at this time for elevated BP.
--- NOTE | 2017-11-07 09:08 | PDOC ---
PROGRESS NOTES Diagnosis Problem Problems Medical Problems: (1) Dyspnea Status: Acute Assessment Problems Medical Problems: (1) Dyspnea Status: Acute 1. acute on chronic systolic heart failure - repeat CXR, plan change lasix to PO if improved. Continue medical mgmt. Exceeds weight limit for stress testing. 2. accelerated hypertension - improved but remains hypertensive . increase ACEI, add scheduled oral hydralazine 3. pulmonary hypertension - out patient sleep study 4. venous stasis - outpatient evaluation 5. morbid obesity - encourage weight loss Subjective feeling much better. Walked from ICU to current from yesterday without problems. Denies chest pain, palpitations or lightheadedness. swelling improving. Objective Vital Signs Date Time Temp Pulse Resp B/P (MAP) Pulse Ox O2 Delivery O2 Flow Rate FiO2 11/07/17 08:40 Room Air 11/07/17 08:18 77 153/83 11/07/17 04:58 97.5 15 98 2.0 Intake and Output 11/07/17 07:00 Intake Total 1580 ml Output Total 3400 ml Balance -1820 ml Intake Oral 1580 ml Output Urine Total 3400 ml # Voids 1 # Bowel Movements 1 Abdomen: Normal bowel sounds, Soft, No tenderness, Other (obese) Heart: Regular rate, Normal S1, Normal S2 Extremities: No cyanosis, Other (chroinc edema, improving) General: Alert, Oriented X3, Cooperative, No acute distress Lungs: Clear to auscultation Neuro: Normal speech, Strength at 5/5 X4 ext Psych/Mental Status: Mental status NL Review of Relevant I have reviewed the following items jes (where applicable) has been applied. Labs Laboratory Tests Test 11/05/17 17:15 11/06/17 06:05 11/07/17 05:53 Nasal Screen MRSA (PCR) Negative (Negative) White Blood Count 6.0 x10^3/uL (4.0-11.0) Red Blood Count 5.02 x10^6/uL (4.30-5.70) Hemoglobin 13.3 g/dL (13.0-17.5) Hematocrit 40.7 % (39.0-53.0) Mean Corpuscular Volume 81 fL (79-100) Mean Corpuscular Hemoglobin 27 pg (25-35) Mean Corpuscular Hemoglobin Concent 33 g/dL (31-37) Red Cell Distribution Width 16.5 % (11.5-14.5) Platelet Count 259 x10^3/uL (140-400) Sodium Level 142 mmol/L (136-145) 142 mmol/L (136-145) Potassium Level 3.6 mmol/L (3.5-5.1) 3.5 mmol/L (3.5-5.1) Chloride Level 104 mmol/L (98-107) 104 mmol/L (98-107) Carbon Dioxide Level 31 mmol/L (21-32) 30 mmol/L (21-32) Anion Gap 7 (6-14) 8 (6-14) Blood Urea Nitrogen 10 mg/dL (8-26) 10 mg/dL (8-26) Creatinine 1.2 mg/dL (0.7-1.3) 1.2 mg/dL (0.7-1.3) Estimated GFR (Cockcroft-Gault) 67.4 67.4 BUN/Creatinine Ratio 8 (6-20) Glucose Level 97 mg/dL (70-99) 94 mg/dL (70-99) Calcium Level 8.7 mg/dL (8.5-10.1) 8.7 mg/dL (8.5-10.1) Total Bilirubin 2.1 mg/dL (0.2-1.0) Aspartate Amino Transf (AST/SGOT) 12 U/L (15-37) Alanine Aminotransferase (ALT/SGPT) 11 U/L (16-63) Alkaline Phosphatase 60 U/L (46-116) Total Protein 6.5 g/dL (6.4-8.2) Albumin 3.3 g/dL (3.4-5.0) Albumin/Globulin Ratio 1.0 (1.0-1.7) Medications Current Medications Aspirin (Children'S Aspirin) 324 mg 1X ONCE PO Last administered on 11/04/17at 18:41; Start 11/04/17 at 18:45; Stop 11/04/17 at 18:46; Status DC Lactated Ringer's 1,000 ml @ 100 mls/hr Q10H IV Last administered on 11/04/17at 18:26; Start 11/04/17 at 18:26; Stop 11/05/17 at 04:25; Status DC Furosemide (Lasix) 40 mg 1X ONCE IVP Last administered on 11/04/17 18:48; Start 11/04/17 at 18:45; Stop 11/04/17 at 18:46; Status DC Nitroglycerin (Nitro-Bid Oint) 1 inch 1X ONCE TP Last administered on 18:44; Start 11/04/17 at 18:45; Stop 11/04/17 at 18:46; Status DC Metoprolol Tartrate (Lopressor Vial) 5 mg 1X ONCE IV Last administered on at 18:46; Start 11/04/17 at 18:45; Stop 11/04/17 at 18:46; Status DC Enoxaparin Sodium (Lovenox 150mg Syringe) 150 mg Q12HR SQ Last administered on 11/07/17 08:31; Start 11/04/17 at 21:00 Aspirin (Children'S Aspirin) 81 mg DAILY PO Last administered on 11/07/17 08:20 ; Start 11/05/17 at 09:00 Furosemide (Lasix) 40 mg 1X ONCE IVP Last administered on 11/04/17at 21:37; Start 11/04/17 at 19:30; Stop 11/04/17 at 19:31; Status DC Labetalol HCl (Trandate) 100 mg TID PO Last administered on 11/07/17 08:17; Start 11/05/17 at 05:00 Diltiazem HCl 125 mg/Dextrose 125 ml @ 5 mls/hr CONT PRN IV SEE I/O RECORD; Start 11/05/17 at 09:00; Stop 11/05/17 at 09:43; Status DC Hydralazine HCl (Apresoline) 10 mg PRN Q4HRS PRN IV ELEVATED BP, SEE COMMENTS Last administered on 11/05/17at 10:26; Start 11/05/17 at 09:45 Lisinopril (Prinivil) 10 mg DAILY PO Last administered on 11/07/17 08:18; Start 11/05/17 at 09:45 Furosemide (Lasix) 40 mg BID92 IVP Last administered on 11/07/17 08:19; Start 11/05/17 at 09:45 Potassium Chloride (Klor-Con) 20 meq BID PO Last administered on 11/07/17 08:18 ; Start 11/05/17 at 09:45 Nicardipine HCl 50 mg/Sodium Chloride 270 ml @ 0 mls/hr CONT PRN IV SEE I/O RECORD Last administered on 11/05/17at 11:30; Start 11/05/17 at 10:00; Stop at 08:29; Status DC Perflutren Protein Type A Microsphe (Optison) 0.66 mg 1X ONCE IV Last administered on 11/05/17at 16:13; Start 11/05/17 at 16:00; Stop 11/05/17 at 16:02; Status DC Iohexol (Omnipaque 300 Mg/ml) 100 ml 1X ONCE IV Last administered on 11/06/17at 14:11; Start 11/06/17 at 14:10; Stop 11/06/17 at 14:12; Status DC Active Scripts Active Reported Aspirin Ec (Aspirin) 81 Mg Tablet. 1 Tab PO DAILY Vitals/I & O Vital Sign - Last 24 Hours 11/06/17 11/06/17 11/06/17 11/06/17 09:34 11:20 13:36 14:43 Temp 98.2 Pulse 84 81 86 Resp 20 19 B/P (MAP) 153/76 (101) 140/74 (96) 148/67 Pulse Ox 97 97 O2 Delivery Room Air Room Air 11/06/17 11/06/17 11/06/17 11/06/17 14:44 18:37 20:21 20:28 Temp 98.6 Pulse 84 82 82 75 Resp 19 28 26 B/P (MAP) 148/67 (94) 141/91 (108) 141/91 179/93 (121) Pulse Ox 98 94 O2 Delivery Room Air Room Air Room Air 11/06/17 11/07/17 11/07/17 11/07/17 22:00 04:58 08:17 08:18 Temp 98.5 97.5 Pulse 73 77 77 77 Resp 19 15 B/P (MAP) 160/73 (102) 153/83 (106) 153/83 153/83 Pulse Ox 94 98 O2 Delivery Room Air Nasal Cannula O2 Flow Rate 2.0 11/07/17 08:40 O2 Delivery Room Air Intake and Output 11/06/17 11/06/17 11/07/17 15:00 23:00 07:00 Intake Total 600 ml 880 ml 100 ml Output Total 950 ml 2050 ml 400 ml Balance -350 ml -1170 ml -300 ml RADHA SANTIAGO APPRENTICE PLANT ATTENDANT Nov 07, 2017 09:08
[2017-11-07] MEDS ORDERED: hydrALAZINE 25 MG TABLET PO SCH (09:15)
[2017-11-07 10:31] VITALS: BP 142/77
--- NOTE | 2017-11-07 11:27 | RAD ---
EXAM: Chest, 2 views. HISTORY: Congestive heart failure. COMPARISON: 11/04/2017 FINDINGS: Frontal and lateral views chest are obtained. There has been slight interval decrease in pulmonary congestion. There is no consolidation, pleural effusion or pneumothorax. There is a stable prominent cardiac silhouette. There is a small nodular opacity overlying the lateral left upper lobe due to artifact from a bus driver/monitor. IMPRESSION: Decrease in pulmonary congestion. Electronically signed by: Concepcion Martinez MD (11/07/2017 11:24 AM) [place] [id number]
[2017-11-07] MEDS ORDERED: LISI-334 PO (13:54)
[2017-11-07] MEDS ORDERED: ASPI-630 PO (13:54)
[2017-11-07] MEDS ORDERED: LABE200T4 PO (13:54)
[2017-11-07] MEDS ORDERED: FURO-68 PO (14:02)
--- NOTE | 2017-11-07 14:10 | NUR ---
Plan is to discharge at this time. Follow up appt set up for November 21 at 9am with [facility]. Prescriptions given to patient and able to verbalize and understand new medications.
--- NOTE | 2017-11-07 14:44 | NUR ---
Patient ambulated off unit independtly with parent. Patient able to verbalize discharge instructions. Information given to patient about sleep study and new appt with cardio.
--- NOTE | 2017-11-07 15:31 | DS ---
DATE OF DISCHARGE: 11/07/2017 HOSPITAL COURSE: The patient is a 37-year-old male patient who was admitted with a complaint of increased shortness of breath, fatigue. He apparently has not seen a doctor for almost 8 years. He was extensively investigated and his blood pressure was extremely high. Chest x-ray showed his heart was enlarged. Pulmonary vascularity congested. He was treated initially with IV metoprolol, was started on a nicardipine drip and eventually was switched him to labetalol 200 mg twice a day, lisinopril 20 mg once a day and furosemide 40 mg once a day and his blood pressure has stabilized. He has had an echocardiogram, which showed that his systolic function is moderately impaired, ejection fraction is grossly 40%, significantly limited images despite contrast use. Doppler and color flow revealed trace tricuspid regurgitation. Pulmonary artery pressure is high at 356 mmHg. The patient was diuresed aggressively and has done very well. He lost at least 10 pounds. His renal duplex ultrasound was unrevealing, so he underwent a CT angio of the abdomen, which basically showed that he has extensive bilateral renal parapelvic cysts and simple-appearing cortical cyst, no clear solid lesion seen. There is no obstructive uropathy, nonobstructing left renal stone. The largest of which measures 4 mm, has cholelithiasis and colonic diverticulosis. PHYSICAL EXAMINATION: GENERAL: When I saw him today, he was sitting on the edge of the bed comfortably in no apparent respiratory distress. VITAL SIGNS: His heart rate 75, blood pressure 142/77, temperature was 97.8, respiratory rate 20, and oxygen saturation was 92%. HEAD, EYES, EARS, NOSE AND THROAT: Normocephalic, atraumatic. NECK: Supple. HEART: Showed normal first and second sounds. No gallop, rub or murmur. CHEST: Clear to auscultation. No crepitation or rhonchi. ABDOMEN: Distended, soft, nontender. NEUROLOGIC: He is awake, alert, responding appropriately. Cranial nerves intact. He moves extremities without difficulty. His intake over the last 24 hours was 1580, output was 3400. LABORATORY DATA: His most recent white cell count was 6000, hemoglobin 13, hematocrit 40, MCV 81 and platelet count 259,000. Serum sodium 142, potassium 3.5, chloride 104, bicarbonate 30, anion gap of 8, BUN 10, creatinine 1.2, estimated GFR was 67 mL per minute, his glucose 94, calcium was 8.7. Total bilirubin is 2.1. AST, ALT, alkaline phosphatase were normal. Total protein was 6.5, albumin was 3.3. His serum triglycerides were 78. His total cholesterol 161, LDL was 119, VLDL was 15, HDL cholesterol 27 and cholesterol to HDL cholesterol ratio was 5. His TSH slightly elevated at 5.309. His prothrombin time was 11.6, INR 1.1, aPTT was 28. D-dimer was 0.59. Urinalysis was unremarkable. Toxic screen was negative. RADIOLOGICAL DATA: As stated, his chest x-ray showed that he has congestive heart failure with mild perihilar perivascular pulmonary edema. The renal duplex ultrasound study was significantly limited due to body habitus, showed that the right kidney measures 16 x 8 x 8 and a left kidney was not visualized and the renal artery on the left side was also not visualized. The CT angio of the abdomen showed that the exam is extremely limited due to morbid obesity and adequate contrast opacification during angiographic portion of the exam; however, there is a stone within the contracted gallbladder. Pancreas and adrenal glands are unremarkable. No abnormally thickened or dilated loops of bowel is seen. There are few colonic diverticula. There is no lymphadenopathy. There are nonobstructing left renal stones, largest of which measures about 4 mm with extensive bilateral renal parapelvic cyst. DISCHARGE MEDICATIONS: The patient was discharged home to continue on furosemide 40 mg once a day, labetalol 200 mg twice a day, lisinopril 20 mg daily and aspirin 81 mg once a day. FINAL DISCHARGE DIAGNOSES: 1. Accelerated hypertension. 2. Acute chronic systolic congestive heart failure, morbid obesity, obstructive sleep apnea, acute kidney injury that has resolved. Multiple bilateral parapelvic renal cysts, cholelithiasis, colonic diverticulosis. YULISA STOVALL MD DR: MAYRA/la nena JOB#: [id number] / [id number]
[2017-11-08] MEDS ORDERED: LISINOPRIL 20 MG TABLET PO SCH (09:00)
== END 2017-11-07 14:47 | disposition home or self-care (01) | DRG 291 ==
LOC: ER 18:07 → 1 SOUTH 18:30 → ICU 11-05 08:35 → 1 SOUTH 11-07 05:01
PROVIDERS: ADMIT Internal Medicine; ATTEND Internal Medicine
DX: I13.0 Hypertensive heart and chronic kidney disease with heart failure and stage 1 through stage 4 chronic kidney disease, or unspecified chronic kidney disease (principal); I50.23 Acute on chronic systolic (congestive) heart failure; N17.9 Acute kidney failure, unspecified; E66.2 Morbid (severe) obesity with alveolar hypoventilation; Z68.43 Body mass index [BMI] 50.0-59.9, adult; N28.1 Cyst of kidney, acquired; K80.20 Calculus of gallbladder without cholecystitis without obstruction; K57.30 Diverticulosis of large intestine without perforation or abscess without bleeding; N18.9 Chronic kidney disease, unspecified; E87.6 Hypokalemia; I27.20 Pulmonary hypertension, unspecified; Z84.89 Family history of other specified conditions; Z82.49 Family history of ischemic heart disease and other diseases of the circulatory system; Z80.6 Family history of leukemia; Z79.899 Other long term (current) drug therapy
CPT/HCPCS: 99285; C8929; 36415; 71046; 74175; 76770; 80048; 80053; 80061; 80076; 80307; 81001; 82553; 83690; 83735; 83880; 84443; 84484; 85025; 85027; 85379; 85610; 85730; 87641; 93005; 96361; 96374; 96375; G0238; J0360; J1650; J1940; J3490; J7050; J7120; Q9956; Q9967; G0479

== ENCOUNTER 2018-06-16 10:23 | Emergency (ER) | payer SELFPAY ==
[~2018-06-16] VITALS: Ht 182.9 cm; Wt 184.4 kg
[~2018-06-16 10:23] MED LIST: ASPI-612 PO; ASPI-630 PO; FURO-68 PO; LABE200T4 PO; LISI-334 PO
[2018-06-16] MEDS ORDERED: KETOROLAC 30 MG/ML VIAL. IV ONE (10:45)
[2018-06-16 11:15] LABS: BASO % 0 % (0-3); EOS # 0.2 x10^3/uL (0.0-0.7); EOS % 2 % (0-3); HEMATOCRIT 44.8 % (39.0-53.0); LYMPH % 8 % (24-48); MEAN CORPUSCULAR HEMOGLOBIN 28 pg (25-35); MEAN CORPUSCULAR HGB CONC 33 g/dL (31-37); MEAN CORPUSCULAR VOLUME 85 fL (79-100); MONO # 1.2 x10^3/uL (0.0-1.1); MONO % 9 % (0-9); NEUT # 10.7 x10^3uL (1.8-7.7); NEUT % 81 % (31-73); PLATELET COUNT 283 x10^3/uL (140-400); RED BLOOD COUNT 5.27 x10^6/uL (4.30-5.70); RED CELL DISTRIBUTION WIDTH 14.2 % (11.5-14.5); WHITE BLOOD COUNT 13.2 x10^3/uL (4.0-11.0)
[2018-06-16 11:16] LABS: ALBUMIN 3.8 g/dL (3.4-5.0); CALCIUM 8.8 mg/dL (8.5-10.1); CREATININE 1.3 mg/dL (0.7-1.3); GFR 61.5; POTASSIUM 4.4 mmol/L (3.5-5.1); TOTAL BILIRUBIN 0.7 mg/dL (0.2-1.0); TOTAL PROTEIN 7.6 g/dL (6.4-8.2)
[2018-06-16 11:17] LABS: CLARITY,URINE HAZY; COLOR,URINE AMBER
[2018-06-16 11:18] LABS: BACTERIA,URINE 0 /HPF (0-FEW); BILIRUBIN,URINE NEG (NEG); GLUCOSE,URINE NEG (NEG); NITRITE,URINE NEG (NEG); SQUAMOUS EPITHELIAL CELL,UR OCC /LPF; UROBILINOGEN,URINE 0.2 mg/dL (0.2 mg/dL); WBC,URINE 0 /HPF (0-4)
--- NOTE | 2018-06-16 11:19 | PHYS DOC ---
Past History Past Medical History: Hypertension, Other Past Surgical History: Other Alcohol Use: None Drug Use: None Adult General Chief Complaint Chief Complaint: FLANK PAIN HPI HPI 37-year-old male presents with left flank pain. The patient woke up at 6 AM with left flank pain, cramping and moderate in intensity. He is also had some difficulty urinating this morning. Patient has had a history of kidney stones in the past. He has not noticed any hematuria or increased frequency. The patient is on Lasix so he piece frequently at baseline. He denies fever or chills. He denies trauma. Review of Systems Review of Systems Constitutional: Denies fever or chills [] Eyes: Denies change in visual acuity, redness, or eye pain [] HENT: Denies nasal congestion or sore throat [] Respiratory: Denies cough or shortness of breath [] Cardiovascular: No additional information not addressed in HPI [] GI: Denies abdominal pain, nausea, vomiting, bloody stools or diarrhea [] : Denies dysuria or hematuria [] Musculoskeletal: Left flank pain[] Integument: Denies rash or skin lesions [] Neurologic: Denies headache, focal weakness or sensory changes [] Endocrine: Denies polyuria or polydipsia [] All other systems were reviewed and found to be within normal limits, except as documented in this note. Current Medications Current Medications Current Medications Medications (Trade) Dose Ordered Sig/[facility] Start Time Stop Time Status Last Admin Dose Admin Ketorolac Tromethamine (Toradol 30mg Vial) 30 mg 1X ONCE 06/16/18 10:45 06/16/18 10:46 DC 06/16/18 11:05 30 MG Allergies Allergies Allergies Coded Allergies Type Severity Reaction Last Updated Verified No Known Drug Allergies 06/16/18 No Physical Exam Physical Exam Constitutional: Well developed, elderly obese, well nourished, no acute distress , non-toxic appearance. [] HENT: Normocephalic, atraumatic, bilateral external ears normal, oropharynx moist, no oral exudates, nose normal. [] Eyes: PERRLA, EOMI, conjunctiva normal, no discharge. [] Neck: Normal range of motion, no tenderness, supple, no stridor. [] Cardiovascular:Heart rate regular rhythm, no murmur [] Lungs & Thorax: Bilateral breath sounds clear to auscultation [] Abdomen: Bowel sounds normal, soft, no tenderness, no masses, no pulsatile masses. [] Skin: Warm, dry, no erythema, no rash. [] Back: Left-sided CVA tenderness. [] Extremities: No tenderness, no cyanosis, no clubbing, ROM intact, no edema. [] Neurologic: Alert and oriented X 3, normal motor function, normal sensory function, no focal deficits noted. [] Psychologic: Affect normal, judgement normal, mood normal. [] Current Patient Data Vital Signs Vital Signs Date Time Temp Pulse Resp B/P (MAP) Pulse Ox O2 Delivery O2 Flow Rate FiO2 06/16/18 10:25 98.2 82 20 97 Room Air EKG EKG [] Radiology/Procedures Radiology/Procedures [] Impressions: Examination: CT ABDOMEN PELVIS WO CONTRAST History: Pain Comparison/Correlation: 11/06/2017 CTA of the abdomen Findings: Axial images of the abdomen and pelvis were obtained without contrast. Sagittal and coronal reformatted images provided. Fatty infiltration of liver noted. Spleen is unremarkable. Pancreas is normal. Adrenal glands are normal. A calculus is present within the gallbladder neck measuring 0.9 cm diameter. No pericholecystic fluid or biliary dilatation. Appendix is normal. Moderate quantity of stool in the colon is present. Diverticulosis of the colon is present. Retained contrast within diverticula evident. Numerous bilateral parapelvic renal cysts are present. There is no right hydroureter. Left renal upper pole calyceal calculi are present. A punctate calculus with adjacent 0.3 cm diameter calculus is noted posterior aspect of the left renal upper pole. More inferiorly at the left renal upper pole, there is a 0.3 cm diameter nonobstructive calculus. Left hydroureter is present. Left perinephric stranding is present. There are 2 calculi adjacent to one another within the left ureter at the distal aspect a few CM from the ureterovesical junction. The larger of these calculi measures 0.4 cm diameter and the other adjacent calculus is punctate. No enlarged abdominal or pelvic lymph nodes. No ascites or pelvic free fluid. Urinary bladder is decompressed. Bilateral inguinal hernias containing omental fat. Bony structures are unremarkable for the patient's age. Impression: Distal left ureteral obstructive calculi. Nonobstructive left renal calculi are also present. Cholelithiasis. Fatty infiltration of the liver. Electronically signed by: Abe Nix MD (06/16/2018 11:20 AM) [id number] Course & Med Decision Making Course & Med Decision Making Pertinent Labs and Imaging studies reviewed. (See chart for details) Patient's labs are unremarkable. His urinalysis is positive for blood but no infection. CT scan pending. Patient's pain is greatly improved with Toradol. His CT scan does show multiple stones. He does have obstruction of the left ureter with hydroureter. There is also some coral-nephric stranding on the left. I will consult urology for treatment. I discussed the patient with [facility] and she has accepted the patient for transfer to [facility]. I discussed this with the patient and he is in agreement with transfer. I will discuss admission with the hospitalist at [place]. Dr. Santiago has accepted the patient for admission. [] Dragon Disclaimer Dragon Disclaimer This electronic medical record was generated, in whole or in part, using a voice recognition dictation system. Departure Departure: Impression: Primary Impression: Left ureteral stone Additional Impression: Left ureter dilated Disposition: XFER SHT-TRM HOSP Condition: STABLE Referrals: PCP,NO (PCP) Problem Qualifiers NEHA POOLE DO Jun 16, 2018 11:19
--- NOTE | 2018-06-16 11:24 | RAD ---
Examination: CT ABDOMEN PELVIS WO CONTRAST History: Pain Comparison/Correlation: 11/06/2017 CTA of the abdomen Findings: Axial images of the abdomen and pelvis were obtained without contrast. Sagittal and coronal reformatted images provided. Fatty infiltration of liver noted. Spleen is unremarkable. Pancreas is normal. Adrenal glands are normal. A calculus is present within the gallbladder neck measuring 0.9 cm diameter. No pericholecystic fluid or biliary dilatation. Appendix is normal. Moderate quantity of stool in the colon is present. Diverticulosis of the colon is present. Retained contrast within diverticula evident. Numerous bilateral parapelvic renal cysts are present. There is no right hydroureter. Left renal upper pole calyceal calculi are present. A punctate calculus with adjacent 0.3 cm diameter calculus is noted posterior aspect of the left renal upper pole. More inferiorly at the left renal upper pole, there is a 0.3 cm diameter nonobstructive calculus. Left hydroureter is present. Left perinephric stranding is present. There are 2 calculi adjacent to one another within the left ureter at the distal aspect a few CM from the ureterovesical junction. The larger of these calculi measures 0.4 cm diameter and the other adjacent calculus is punctate. No enlarged abdominal or pelvic lymph nodes. No ascites or pelvic free fluid. Urinary bladder is decompressed. Bilateral inguinal hernias containing omental fat. Bony structures are unremarkable for the patient's age. Impression: Distal left ureteral obstructive calculi. Nonobstructive left renal calculi are also present. Cholelithiasis. Fatty infiltration of the liver. Electronically signed by: Abe Nix MD (06/16/2018 11:20 AM) [id number]
[2018-06-16 13:29] VITALS: BP 179/94
== END 2018-06-16 13:40 | disposition short-term general hospital (02) ==
LOC: ER 10:23
DX: N20.2 Calculus of kidney with calculus of ureter (principal); K80.20 Calculus of gallbladder without cholecystitis without obstruction; K40.20 Bilateral inguinal hernia, without obstruction or gangrene, not specified as recurrent; K76.0 Fatty (change of) liver, not elsewhere classified; I10 Essential (primary) hypertension; N28.82 Megaloureter; Z87.442 Personal history of urinary calculi
CPT/HCPCS: 36415; 74176; 80053; 81001; 85025; 96374; 99285; J1885

== ENCOUNTER 2018-06-21 12:49 | Emergency (ER) | payer BC ==
[~2018-06-21] VITALS: Ht 182.9 cm; Wt 184.4 kg
--- NOTE | 2018-06-21 13:23 | PHYS DOC ---
Past History Past Medical History: Hypertension, Kidney Stones Past Surgical History: Tonsillectomy Smoking: Non-smoker Alcohol Use: None Drug Use: None, Opiates Social History Narrative: on oxycodone x 1 week Adult General Chief Complaint Chief Complaint: FLANK PAIN [facility] HPI Patient is a 37 year old male who presents with complaining of left flank pain. Patient states he had severe left flank pain on June 16 and was seen in this emergency room and had 2 stone in left ureter with obstruction and was transferred to [facility] and had medical treatment without passing the stones and was discharged home the next day with prescription of Percocet. Patient states he continued to have pain in left flank and radiation to left lower quadrant that getting better with Percocet but used his last pain medication this morning and his pain getting worse. Patient denies fever and chills, nausea and vomiting, hematuria or frequency, diarrhea and constipation. Patient rated his pain 4/10 and does not want to have pain medication at this time. Review of Systems Review of Systems Constitutional: Denies fever or chills [] Eyes: Denies change in visual acuity, redness, or eye pain [] HENT: Denies nasal congestion or sore throat [] Respiratory: Denies cough or shortness of breath [] Cardiovascular: No additional information not addressed in HPI [] GI: Reports flank and abdominal pain, denies nausea, vomiting, bloody stools or diarrhea [] : Denies dysuria or hematuria [] Musculoskeletal: Denies back pain or joint pain [] Integument: Denies rash or skin lesions [] Neurologic: Denies headache, focal weakness or sensory changes [] Endocrine: Denies polyuria or polydipsia [] All other systems were reviewed and found to be within normal limits, except as documented in this note. Current Medications Current Medications Current Medications Medications (Trade) Dose Ordered Sig/[facility] Start Time Stop Time Status Last Admin Dose Admin Sodium Chloride 1,000 ml @ 1,000 mls/hr Q1H 06/21/18 13:06 06/21/18 14:05 UNV Allergies Allergies Allergies Coded Allergies Type Severity Reaction Last Updated Verified No Known Drug Allergies 06/21/18 No Physical Exam Physical Exam Constitutional: Well developed, well nourished, mild acute distress, non-toxic appearance, morbidly obese. [] HENT: Normocephalic, atraumatic, oropharynx moist, no oral exudates, nose normal. [] Eyes: PERRLA, EOMI, conjunctiva normal, no discharge. [] Neck: Normal range of motion, no tenderness, supple, no stridor. [] Cardiovascular:Heart rate regular rhythm, no murmur [] Lungs & Thorax: Bilateral breath sounds clear to auscultation [] Abdomen: Bowel sounds normal, soft, no tenderness, no masses, no pulsatile masses. [] Skin: Warm, dry, no erythema, no rash. [] Back: No tenderness, no CVA tenderness. [] Extremities: No tenderness, no cyanosis, no clubbing, ROM intact, no edema. [] Neurologic: Alert and oriented X 3, normal motor function, normal sensory function, no focal deficits noted. [] Psychologic: Affect normal, judgement normal, mood normal. [] Current Patient Data Vital Signs Vital Signs Date Time Temp Pulse Resp B/P (MAP) Pulse Ox O2 Delivery O2 Flow Rate FiO2 06/21/18 12:58 98.0 90 24 96 Room Air EKG EKG [] Radiology/Procedures Radiology/Procedures [address] [address] IMAGING REPORT Signed PATIENT: HUE CLEMONS ACCOUNT: [id number] : 1980 LOCATION: ER AGE: 37 SEX: M EXAM STATUS: REG ER ORD. PHYSICIAN: MANUELA HOBBS MD REASON: flank pain, left PROCEDURE: CT ABDOMEN PELVIS WO CONTRAST Examination: CT of the abdomen pelvis without contrast HISTORY: History of left flank pain COMPARISON: 06/16/2018 TECHNIQUE: Axial CT images of the abdomen pelvis were performed without contrast. Coronal and sagittal reformats are performed Exposure: One or more of the following individualized dose reduction techniques were utilized for this examination: 1. Automated exposure control 2. Adjustment of the mA and/or kV according to patient size 3. Use of iterative reconstruction technique FINDINGS: Minimal bibasilar lung atelectasis. No evidence of free air identified in the abdomen the evaluation of solid organs is limited lack of IV contrast. Evaluation of bowel is limited lack of oral contrast. There is a diffuse decreased attenuation noted in the liver likely hepatic steatosis. The gallbladder is mildly distended. Gallstone identified in the proximal gallbladder similar to prior exam. The visualized spleen, adrenals grossly appears unremarkable. The stomach is mildly distended. The visualized pancreas grossly appears unremarkable. The small bowel is nondilated. Feces and gas noted in the colon Punctate intrarenal collecting system calculi identified in the left kidney similar to prior exam. Bilateral parapelvic cysts identified about the bilateral renal pelvis similar to prior exam. Moderate inflammatory fat stranding identified about the left kidney and the left ureter increased since prior exam with the hydronephrosis and hydroureter on the left. The previously visualized distal left ureter calculus is now at the left uterovesical junction measuring 4 mm. Urinary bladder is mildly distended There is a cystic structure identified in the superior pole of the left kidney similar to prior exam probably a cyst. Mild degenerative changes lumbar spine. IMPRESSION: 1. 4 mm ureteral calculus identified at the left uterovesical junction causing left-sided hydronephrosis and hydroureter. There is interval increase in moderate inflammatory fat stranding identified about the left ureter and the left kidney. 2. Left nephrolithiasis. 3. Multiple cystic structures identified in the bilateral renal pelvis region probably parapelvic cysts similar to prior exam. 4. Cholelithiasis, 5. Hepatic steatosis. Electronically signed by: Alan Blackwood MD (06/21/2018 1:42 PM) [facility] DICTATED AND SIGNED BY: ALAN BLACKWOOD MD DATE: 06/21/18 4218 CC: MANUELA HOBBS MD; PCP,NO ~ Course & Med Decision Making Course & Med Decision Making Pertinent Labs and Imaging studies reviewed. (See chart for details) Evaluation of patient in ER showed 37-year-old male patient with history of kidney stone and hospitalization 5 days ago without passing the stone and having more pain after finishing pain medication. Patient treated with IV fluid and morphine and Zofran and felt better. CT showed 4 mm stone in UP junction with hydronephrosis. Patient was not able to give a urine sample at time of transfer. Dr. Macario accepted transfer to to [facility] at 14 008. Dragon Disclaimer Dragon Disclaimer This electronic medical record was generated, in whole or in part, using a voice recognition dictation system. Departure Departure: Impression: Primary Impression: Renal colic on left side Additional Impressions: Ureterolithiasis Cholelithiasis Renal cyst Acute renal insufficiency Morbid obesity with BMI of 50.0-59.9, adult Hypoalbuminemia Disposition: XF SHT-TRM HOSP ([facility] at 1410) Admitting Physician: Shahrzad Macario (accepted transfer to [facility] at 1408) Condition: IMPROVED Referrals: PCP,NO (PCP) Problem Qualifiers MANUELA HOBBS MD Jun 21, 2018 13:23
[2018-06-21 13:30] LABS: BASO # 0.1 x10^3/uL (0.0-0.2); BASO % 1 % (0-3); EOS # 0.1 x10^3/uL (0.0-0.7); EOS % 1 % (0-3); HEMOGLOBIN 12.4 g/dL (13.0-17.5); LYMPH # 0.7 x10^3/uL (1.0-4.8); LYMPH % 6 % (24-48); MEAN CORPUSCULAR HEMOGLOBIN 28 pg (25-35); MEAN CORPUSCULAR HGB CONC 33 g/dL (31-37); MEAN CORPUSCULAR VOLUME 85 fL (79-100); MONO # 1.7 x10^3/uL (0.0-1.1); MONO % 15 % (0-9); NEUT # 9.4 x10^3uL (1.8-7.7); NEUT % 79 % (31-73); PLATELET COUNT 332 x10^3/uL (140-400); RED BLOOD COUNT 4.35 x10^6/uL (4.30-5.70); RED CELL DISTRIBUTION WIDTH 13.9 % (11.5-14.5)
[2018-06-21] MEDS ORDERED: IV NORMAL SALINE 1,000ML 1,000 ML IV SCH (13:30)
[2018-06-21 13:38] LABS: ALBUMIN 2.9 g/dL (3.4-5.0); ALBUMIN/GLOBULIN RATIO 0.6 (1.0-1.7); CREATININE 1.6 mg/dL (0.7-1.3); GFR 48.4; POTASSIUM 4.6 mmol/L (3.5-5.1); TOTAL PROTEIN 7.7 g/dL (6.4-8.2)
--- NOTE | 2018-06-21 13:45 | RAD ---
Examination: CT of the abdomen pelvis without contrast HISTORY: History of left flank pain COMPARISON: 06/16/2018 TECHNIQUE: Axial CT images of the abdomen pelvis were performed without contrast. Coronal and sagittal reformats are performed Exposure: One or more of the following individualized dose reduction techniques were utilized for this examination: 1. Automated exposure control 2. Adjustment of the mA and/or kV according to patient size 3. Use of iterative reconstruction technique FINDINGS: Minimal bibasilar lung atelectasis. No evidence of free air identified in the abdomen the evaluation of solid organs is limited lack of IV contrast. Evaluation of bowel is limited lack of oral contrast. There is a diffuse decreased attenuation noted in the liver likely hepatic steatosis. The gallbladder is mildly distended. Gallstone identified in the proximal gallbladder similar to prior exam. The visualized spleen, adrenals grossly appears unremarkable. The stomach is mildly distended. The visualized pancreas grossly appears unremarkable. The small bowel is nondilated. Feces and gas noted in the colon Punctate intrarenal collecting system calculi identified in the left kidney similar to prior exam. Bilateral parapelvic cysts identified about the bilateral renal pelvis similar to prior exam. Moderate inflammatory fat stranding identified about the left kidney and the left ureter increased since prior exam with the hydronephrosis and hydroureter on the left. The previously visualized distal left ureter calculus is now at the left uterovesical junction measuring 4 mm. Urinary bladder is mildly distended There is a cystic structure identified in the superior pole of the left kidney similar to prior exam probably a cyst. Mild degenerative changes lumbar spine. IMPRESSION: 1. 4 mm ureteral calculus identified at the left uterovesical junction causing left-sided hydronephrosis and hydroureter. There is interval increase in moderate inflammatory fat stranding identified about the left ureter and the left kidney. 2. Left nephrolithiasis. 3. Multiple cystic structures identified in the bilateral renal pelvis region probably parapelvic cysts similar to prior exam. 4. Cholelithiasis, 5. Hepatic steatosis. Electronically signed by: Alan Blackwood MD (06/21/2018 1:42 PM) [facility]
[2018-06-21] MEDS ORDERED: MORPHINE SULFATE 4 MG/ML DISP.SYRIN. IV ONE (14:30)
[2018-06-21] MEDS ORDERED: ONDANSETRON PF 4 MG/2 ML VIAL. IV ONE (14:30)
[2018-06-21 16:43] VITALS: BP 160/91
[2018-06-21 17:34] LABS: BILIRUBIN,URINE NEG (NEG); CLARITY,URINE CLEAR; COLOR,URINE YELLOW; GLUCOSE,URINE NEG (NEG); NITRITE,URINE NEG (NEG); UROBILINOGEN,URINE 2 mg/dL (0.2 mg/dL)
[2018-06-21 17:35] LABS: BACTERIA,URINE 0 /HPF (0-FEW); SQUAMOUS EPITHELIAL CELL,UR OCC /LPF
== END 2018-06-21 17:10 | disposition short-term general hospital (02) ==
LOC: ER 12:49
DX: N13.2 Hydronephrosis with renal and ureteral calculous obstruction (principal); K80.20 Calculus of gallbladder without cholecystitis without obstruction; N28.9 Disorder of kidney and ureter, unspecified; E66.01 Morbid (severe) obesity due to excess calories; E88.09 Other disorders of plasma-protein metabolism, not elsewhere classified; I10 Essential (primary) hypertension; N28.1 Cyst of kidney, acquired; K76.0 Fatty (change of) liver, not elsewhere classified; Z87.442 Personal history of urinary calculi; Z68.43 Body mass index [BMI] 50.0-59.9, adult
CPT/HCPCS: 36415; 74176; 80053; 81001; 83690; 85025; 96374; 96375; 99285; J2270; J2405; J7030

== ENCOUNTER 2019-12-17 20:38 | Observation (INO) | payer BC ==
[~2019-12-17] VITALS: Ht 182.9 cm; Wt 200.0 kg
[~2019-12-17 20:38] MED LIST changes: -ASPI-612 PO; +ASPI-889 PO
[2019-12-17] MEDS ORDERED: ASPIRIN CHEWABLE 81 MG TABLET. ONE (20:48)
--- NOTE | 2019-12-17 20:53 | PHYS DOC ---
Past History Past Medical History: Hypertension, Kidney Stones Past Surgical History: Tonsillectomy Smoking: Non-smoker Alcohol Use: None Drug Use: None, Opiates Adult General Chief Complaint Chief Complaint: CHEST PAIN HPI HPI Patient is a 39-year-old male who presents for chest pain. Onset was 4 hours prior to arrival. Patient reports substernal chest pain that radiated to jaw and left arm. Described pain as tight pressure that was 4/10 in severity. This self resolved shortly after onset; however, patient reports recurrence of similar pains in the following hours prompting him to visit our ER for evaluation. Associated symptoms included mild nausea, weakness, and shortness of breath. Patient has extensive cardiac history and risk factors for cardiovascular disease. He is obese, has from what he describes as nonischemic cardiomyopathy likely due to blood pressure versus obesity. He reports being on Entresto daily in addition to other guideline directed medical therapy for heart failure reduced ejection fraction (last EF 11/2017 40%). He takes 81 mg aspirin daily. Has a history of heart catheterization without intervention. He reports being establish at [facility] cardiology group. Patient reports 100% compliance with all prescribed medications. He does admit that he has been noncompliant with fluid restriction and has not been taking his weight daily, reports increased lower extremity edema and overall weight gain in the last few months due to COVID-19 pandemic and being more sedentary Review of Systems Review of Systems Fourteen body systems of review of systems have been reviewed. See HPI for pertinent positives and negative responses, other chavez all other systems are negative, non-pertinent or non-contributory Allergies Allergies Allergies Coded Allergies Type Severity Reaction Last Updated Verified No Known Drug Allergies 06/21/18 No Physical Exam Physical Exam Constitutional: Well developed, well nourished, obese no acute distress, non- toxic appearance. HENT: Normocephalic, atraumatic, bilateral external ears normal, oropharynx m oist, no oral exudates, nose normal. Eyes: PERRLA, EOMI, conjunctiva normal, no discharge. Neck: Normal range of motion, no tenderness, supple, no stridor. Cardiovascular: Heart rate regular, sinus rhythm, no murmurs rubs or gallops Lungs & Thorax: Bilateral breath sounds clear to auscultation Abdomen: Bowel sounds normal, soft, protuberant abdomen, no tenderness, no masses, no pulsatile masses. Nonsurgical abdomen, no peritoneal signs Skin: Warm, dry, no erythema, no rash. Back: No tenderness, no CVA tenderness. Extremities: No tenderness, no cyanosis, no clubbing, ROM intact, no edema. Neurologic: Alert and oriented X 3, grossly normal motor & sensory function, no focal deficits noted. Psychologic: Affect normal, judgement normal, mood normal. Current Patient Data Vital Signs Vital Signs Date Time Temp Pulse Resp B/P (MAP) Pulse Ox O2 Delivery O2 Flow Rate FiO2 12/17/19 21:19 97.6 75 20 196/101 (132) 98 Lab Results Laboratory Tests Test 12/17/19 20:46 White Blood Count 6.1 x10^3/uL Red Blood Count 5.00 x10^6/uL Hemoglobin 14.3 g/dL Hematocrit 42.5 % Mean Corpuscular Volume 85 fL Mean Corpuscular Hemoglobin 29 pg Mean Corpuscular Hemoglobin Concent 34 g/dL Red Cell Distribution Width 14.4 % Platelet Count 250 x10^3/uL Neutrophils (%) (Auto) 61 % Lymphocytes (%) (Auto) 21 % Monocytes (%) (Auto) 13 % Eosinophils (%) (Auto) 4 % Basophils (%) (Auto) 1 % Neutrophils # (Auto) 3.7 x10^3uL Lymphocytes # (Auto) 1.3 x10^3/uL Monocytes # (Auto) 0.8 x10^3/uL Eosinophils # (Auto) 0.2 x10^3/uL Basophils # (Auto) 0.1 x10^3/uL D-Dimer (Bella) < 0.19 mg/L Sodium Level 142 mmol/L Potassium Level 4.2 mmol/L Chloride Level 105 mmol/L Carbon Dioxide Level 28 mmol/L Anion Gap 9 Blood Urea Nitrogen 12 mg/dL Creatinine 1.3 mg/dL Estimated GFR (Cockcroft-Gault) 60.8 BUN/Creatinine Ratio 9 Glucose Level 107 mg/dL Calcium Level 8.6 mg/dL Magnesium Level 2.1 mg/dL Total Bilirubin 0.6 mg/dL Aspartate Amino Transf (AST/SGOT) 15 U/L Alanine Aminotransferase (ALT/SGPT) 12 U/L Alkaline Phosphatase 68 U/L Creatine Kinase 57 U/L Troponin I Quantitative < 0.017 ng/mL DF-Ika-R-Type Natriuretic Peptide 34 pg/mL Total Protein 7.2 g/dL Albumin 3.9 g/dL Albumin/Globulin Ratio 1.2 Lipase 59 U/L Current Medications Medications (Trade) Dose Ordered Sig/Jody Route PRN Reason Start Time Stop Time Status Last Admin Dose Admin Aspirin (Aspirin Chewable) 81 mg STK-MED ONCE .ROUTE 12/17/19 20:48 12/17/19 20:48 DC Aspirin (Aspirin Chewable) 243 mg 1X ONCE PO 12/17/19 21:30 12/17/19 21:31 DC Nitroglycerin (Nitrostat) 0.4 mg PRN Q5MIN PRN SL CP RATING > 1/10 12/17/19 21:00 12/18/19 20:59 EKG EKG EKG ordered and interpreted by myself at 2048 hrs. as normal sinus rhythm at 72 bpm, unremarkable intervals, left axis deviation, no ischemic findings, no STEMI Radiology/Procedures Radiology/Procedures 1 view chest x-ray ordered and interpreted by myself as no acute cardiopulmonary process, mild to moderate central pulmonary congestion/fluid overload without any other concerning findings. Pending official radiologist read at this time Course & Med Decision Making Course & Med Decision Making Ambulatory patient seen immediately on ED arrival by myself Airway patent, breathing unlabored, vitals remarkable for marked hypertension without any other findings. IV access obtained Comprehensive history and physical exam obtained with subsequent ordering of laboratory and imaging studies Patient administered 243 mg aspirin and x1 sublingual nitro with near total improvement in symptomology. Decision was made to administer IV 40 mg Lasix given clinical concern for fluid overload ED course reviewed, patient remained relatively symptom-free after intervention noted above. Discussed non-emergent findings based on physical exam, laboratory and imaging studies; however, could not exclude development of more serious process Given patient's extensive risk factors and concerning story, joint decision was made to admit for further medical observation On-call hospitalist, Dr. Raymundo, was contacted and case was discussed. He graciously agreed to admit patient under his care All questions and concerns addressed prior to ER departure, patient transported via EMS to [facility] for continued medical care Dragon Disclaimer Dragon Disclaimer This electronic medical record was generated, in whole or in part, using a voice recognition dictation system. The HEART Score for CP Pts HEART Score for Chest Pain: HEART Score for Chest Pain Response (Comments) Value History Highly Suspicious 2 ECG Normal 0 Age < 45 0 Risk Factors >3 Risk Factors or Hx CAD 2 Troponin < Normal Limit 0 Total 4 Risk Factors: Risk Factors: DM, Current or recent (<one month) smoker, HTN, HLP, family history of CAD, obesity. Risk Scores: Score 0 - 3: 2.5% MACE over next 6 weeks - Discharge Home Score 4 - 6: 20.3% MACE over next 6 weeks - Admit for Clinical Observation Score 7 - 10: 72.7% MACE over next 6 weeks - Early Invasive Strategies Departure Departure: Impression: Primary Impression: Chest pain, rule out acute myocardial infarction Additional Impressions: HFrEF (heart failure with reduced ejection fraction) Morbid obesity with BMI of 50.0-59.9, adult Hypertension Disposition: ADMITTED INPATIENT Admitting Physician: Silvia Raymundo Condition: STABLE Referrals: SILVIA RAYMUNDO MD (PCP) Justification of Admission: Justification of Admission: Justification of Admission Dx: Yes (Heart score 4, significant risk factors for cardiac decompensation if not monitored overnight for cardiac observation and further medical treatment) Problem Qualifiers MARA HUMPHREY DO Dec 17, 2019 20:53
[2019-12-17] MEDS ORDERED: NITROGLYCERIN SUBLINGUAL 0.4 MG BOTTLE OF 25. SL PRN (21:00)
[2019-12-17 21:05] LABS: BASO # 0.1 x10^3/uL (0.0-0.2); BASO % 1 % (0-3); EOS # 0.2 x10^3/uL (0.0-0.7); EOS % 4 % (0-3); HEMATOCRIT 42.5 % (39.0-53.0); HEMOGLOBIN 14.3 g/dL (13.0-17.5); LYMPH # 1.3 x10^3/uL (1.0-4.8); LYMPH % 21 % (24-48); MEAN CORPUSCULAR HEMOGLOBIN 29 pg (25-35); MEAN CORPUSCULAR HGB CONC 34 g/dL (31-37); MEAN CORPUSCULAR VOLUME 85 fL (79-100); MONO # 0.8 x10^3/uL (0.0-1.1); MONO % 13 % (0-9); NEUT # 3.7 x10^3uL (1.8-7.7); NEUT % 61 % (31-73); PLATELET COUNT 250 x10^3/uL (140-400); RED CELL DISTRIBUTION WIDTH 14.4 % (11.5-14.5); WHITE BLOOD COUNT 6.1 x10^3/uL (4.0-11.0)
[2019-12-17 21:09] LABS: CALCIUM 8.6 mg/dL (8.5-10.1); CREATININE 1.3 mg/dL (0.7-1.3); GFR 60.8; POTASSIUM 4.2 mmol/L (3.5-5.1)
[2019-12-17 21:21] LABS: ALBUMIN 3.9 g/dL (3.4-5.0); ALBUMIN/GLOBULIN RATIO 1.2 (1.0-1.7); MAGNESIUM 2.1 mg/dL (1.8-2.4); TOTAL BILIRUBIN 0.6 mg/dL (0.2-1.0); TOTAL PROTEIN 7.2 g/dL (6.4-8.2)
[2019-12-17] MEDS ORDERED: ASPIRIN CHEWABLE 81 MG TABLET. PO ONE (21:30)
--- NOTE | 2019-12-17 21:58 | RAD ---
EXAM: AP View of the chest DATE: 12/17/2019 8:53 PM INDICATION: Chest pain COMPARISON: 11/07/2017, 11/04/2017 FINDINGS: Heart is mildly enlarged. Aorta is tortuous. Patchy opacities right and left lung base likely atelectasis. Calcified granuloma right midlung. No pleural effusion or pneumothorax. IMPRESSION: Patchy bibasilar opacities may represent atelectasis. Electronically signed by: Ayo Haskins MD (12/17/2019 9:55 PM) JANICE
[2019-12-17] MEDS ORDERED: FUROSEMIDE 40 MG/4 ML VIAL IVP ONE (22:00)
--- NOTE | 2019-12-17 22:30 | NUR ---
Pt admitted to room 119 via gurney by EMS accompanied by ER nurse. Pt was sitting up at bedside during admission. Pt had complaints of chest pressure and left arm pain. Pt. was calm and cooperative during assessment. Pt was orientated to room and POC was discussed. Call light in reach, will continue to monitor.
[2019-12-17 23:58] VITALS: BP 150/92
[2019-12-18 03:06] VITALS: BP 120/80
[2019-12-18 06:17] VITALS: BP 146/93
--- NOTE | 2019-12-18 06:27 | EKG ---
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
[2019-12-18 08:11] VITALS: BP 142/83
[2019-12-18] MEDS ORDERED: LISINOPRIL 20 MG TABLET PO SCH (09:00)
[2019-12-18] MEDS ORDERED: LABETALOL HCL 200 MG TABLET PO SCH (09:00)
[2019-12-18] MEDS ORDERED: FUROSEMIDE 40 MG TABLET PO SCH (09:00)
[2019-12-18] MEDS ORDERED: ASPIRIN ENTERIC COATED 81 MG TABLET.DR. PO SCH (09:00)
--- NOTE | 2019-12-18 10:11 | HP ---
ADMIT DATE: 12/17/2019 HISTORY OF PRESENT ILLNESS: A 39-year-old gentleman came in through the Emergency Room. The patient was carrying some groceries in for his father, began to notice some chest discomfort as well as pain down his left arm. It went away fairly well. He does have a history of nonischemic cardiomyopathy with an EF of only 40% back in 2018. He follows with Dr. Napoles. The patient noted he was a little bit short of breath, although mild nausea, weakness. The patient denied any diaphoresis. The patient came in through the Emergency Room and at that time, he was admitted just for rule out MO protocol as initial enzymes were negative. He is in for rule out MO protocol high risk, obviously multiple medical issues here including morbid obesity and history of heart failure. PAST MEDICAL HISTORY: Angina, congestive heart failure, peripheral vascular disease, cardiac catheterization, hypertension, dyspnea, obesity, kidney stones, pressure ulcer. FAMILY HISTORY: One brother unfortunately suicide. Father with hypertension. Cardiovascular disease in the father. Mother some form of cancer. ALLERGIES: No known allergies. HOME MEDICATIONS: Includes that of labetalol 200 b.i.d., lisinopril 20 daily, aspirin and furosemide 40. SOCIAL HISTORY: The patient denies smoking, alcohol or drug use. Lives at home. REVIEW OF SYSTEMS: The patient denies any headaches, visual changes, blurred vision, double vision. Denies any melena, hematochezia, hematemesis and neurologically baseline there. PHYSICAL EXAMINATION: GENERAL: This is a pleasant white male, in no apparent distress. Obviously morbidly obese. The scale for whatever reason says 200 kilos plus probably not able to get to the total weight. VITAL SIGNS: Blood pressure 142/80, respiratory rate 16, pulse 70, afebrile, 94-95% oxygen saturation. HEENT: The patient's head was atraumatic and normocephalic. Eyes: PERRLA without jaundice. Wears glasses. Mouth and throat were normal. NECK: Supple, without thyromegaly. LUNGS: Diminished throughout, but clear. CARDIOVASCULAR: Regular sinus rhythm, S1, S2, without murmur, rub, thrill, or extra heart sounds. ABDOMEN: Protuberant abdomen with soft, nontender, no rebound or guarding. Positive bowel sounds, no hepatosplenomegaly. EXTREMITIES: No clubbing, cyanosis. Trace edema. Pulses noted distally. NEUROLOGIC: Speech is fluent, spontaneous, appropriate. Cranial nerves 2-12 grossly intact. Neurologically complete. LABORATORY DATA: White count 6, hemoglobin 1442. Sodium and potassium 142/4, magnesium 2.1. ALT low at 12. Cardiac enzymes negative. Lipase was normal and coags were negative. Chest x-ray showed some atelectasis, otherwise unremarkable. IMPRESSION: Angina, morbid obesity, history of nonischemic cardiomyopathy with an EF of 40, essential hypertension. The patient was placed on a heart healthy diet, decreased activity also hypertensive urgency. At one time, his blood pressure was 196/100. 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 SILVIA DUTTA MD DR: RAMESH/la nena JOB#: [id number] / [id number]
[2019-12-18 11:00] VITALS: BP 127/82
--- NOTE | 2019-12-18 11:35 | NUR ---
NURSING DISCHARGE NOTE PATIENT IS CURRENTLY ALERT AND ORIENTED X 4 SITTING IN BED PLEASANTLY. PATIENT PLANS ON DISCHARGING TODAY AT APPROXIMATELY 1300. WILL CONTINUE TO BE ON TELE UNTIL DISCHARGE AND IS RUNNING SINUS RHYTHM WITH OCCASIONAL SINUS TACHYCARDIA WHEN GETTING UP TO THE REST ROOM. SKIN IS INTACT AND DOES HAVE SOME PERIPHERAL VASCULAR DISEASE CAUSING SOME REDNESS IN THE CALVES BILATERALLY. PATIENT IS UP AD [facility] AND WORKED WITH PHYSICAL THERAPY WHO GAVE PATIENT THE APPROVAL TO DISCHARGE HOME TODAY. PATIENTS LUNGS ARE CLEAR WITH SOME DIMINISHING IN THE LOWER LOBES BILATERALLY. PATIENT IV WILL BE REMOVED UPON DISCHARGE. PATIENT IS CALM AND RELAXED. WILL GO OVER DISCHARGE PLAN AND PAPERWORK WHEN WE ARE GETTING CLOSER TO CO FOUNDER AND DIRECTOR TIME. HAS NOT COMPLAINED OF ANY SOB OR CHEST PAIN AT THIS TIME. WILL ADDENDUM IF PATIENTS STATUS CHANGES.
[2019-12-18 14:50] LABS: FREE T4 1.23 ng/dL (0.76-1.46); THYROID STIM HORMONE (TSH) 3.287 uIU/mL (0.358-3.740)
== END 2019-12-18 14:23 | disposition home or self-care (01) ==
LOC: ER 20:38 → INTOOBSV 21:46 → 1 SOUTH 21:46
PROVIDERS: ADMIT Family Medicine; ATTEND Family Medicine
DX: I20.9 Angina pectoris, unspecified (principal); E66.01 Morbid (severe) obesity due to excess calories; I11.0 Hypertensive heart disease with heart failure; I16.0 Hypertensive urgency; I42.8 Other cardiomyopathies; I50.20 Unspecified systolic (congestive) heart failure; I73.9 Peripheral vascular disease, unspecified; Z79.82 Long term (current) use of aspirin; Z68.43 Body mass index [BMI] 50.0-59.9, adult; Z91.11 Patient's noncompliance with dietary regimen
CPT/HCPCS: 36415; 71045; 80053; 82550; 83690; 83735; 83880; 84439; 84443; 84484; 85025; 85379; 93005; 96374; 97116; 97162; 99285; G0378; J1940; G0379

== ENCOUNTER 2020-01-26 19:39 | Observation (INO) | payer BC ==
[~2020-01-26] VITALS: Ht 182.9 cm; Wt 193.2 kg
--- NOTE | 2020-01-26 19:41 | PHYS DOC ---
Past History Past Medical History: CHF, Hypertension, Kidney Stones Past Surgical History: Tonsillectomy Smoking: Non-smoker Alcohol Use: None Drug Use: None, Opiates General Adult HPI: HPI: ".. I ve been having some increased chest tightness.. Its been constant the last 4 . 1/2 hours.. but I ve had it off and on the past 2 weeks..." Patient is a 39 year old male who presents with above hx and complaints increased chest discomfort described as tightness. Tightness is localized primarily to the center chest. Some radiation to both shoulders. Nothing he does makes it better or worse. Patient does have significant medical history of angina, congestive heart failure, reflux disease, cardiac cath, hypertension, dyspnea, morbid obesity, kidney stones and dysrhythmias.. Patient denies any change in medications. Patient normally follows Dr. Dutta. Review of Systems: Review of Systems: Constitutional: Denies fever or chills Eyes: Denies change in visual acuity HENT: Denies nasal congestion or sore throat Respiratory: Complains of of shortness of breath Cardiovascular: Complains of chest pain and tightness GI: Denies abdominal pain, nausea, vomiting, bloody stools or diarrhea : Denies dysuria Musculoskeletal: Denies back pain or joint pain Integument: Denies rash Neurologic: Denies headache, focal weakness or sensory changes Endocrine: Denies polyuria or polydipsia Lymphatic: Denies swollen glands Psychiatric: Denies depression or anxiety Heart Score: HEART Score for Chest Pain: HEART Score for Chest Pain Response (Comments) Value History Moderately Suspicious 1 ECG Nonspecific Repolarizatio 1 Age < 45 0 Risk Factors 1 or 2 Risk Factors 1 Troponin < Normal Limit 0 Total 3 Risk Factors: Risk Factors: DM, Current or recent (<one month) smoker, HTN, HLP, family history of CAD, obesity. Risk Scores: Score 0 - 3: 2.5% MACE over next 6 weeks - Discharge Home Score 4 - 6: 20.3% MACE over next 6 weeks - Admit for Clinical Observation Score 7 - 10: 72.7% MACE over next 6 weeks - Early Invasive Strategies Family History: Family History: Father has history of hypertension cardiovascular disease mother has history of cancer. 1 brother that by suicide Current Medications: Current Meds: See nursing for home meds Allergies: Allergies: Allergies Coded Allergies Type Severity Reaction Last Updated Verified No Known Drug Allergies 06/21/18 No Physical Exam: PE: Constitutional: Moderate acute distress, non-toxic appearance. [] HENT: Normocephalic, atraumatic, bilateral external ears normal, oropharynx moist, no oral exudates, nose normal. [] Eyes: PERRLA, EOMI, conjunctiva normal, no discharge. [] Neck: Normal range of motion, no tenderness, supple, no stridor. [] Cardiovascular: Irregular heart rate regular rhythm, no murmur [. The] monitor showing PVCs Lungs & Thorax: Bilateral breath sounds equal apex bibasilar crackles and scattered wheezes. Abdomen: Bowel sounds normal, soft, no tenderness, no masses, no pulsatile masses. [] Morbidly obese. Skin: Warm, dry, no erythema, no rash. [] Back: No tenderness, no CVA tenderness. [] Extremities: No tenderness, no cyanosis, no clubbing, ROM intact, bilateral lower extremity edema. [] Venous stasis changes. Neurologic: Alert and oriented X 3, normal motor function, normal sensory function, no focal deficits noted. [] Psychologic: Affect anxious judgement normal, mood normal. [] EKG: EKG: My interpretation EKG shows a sinus rhythm at 69 bpm. Does have a axis. Does have occasional PVC. No findings of acute STEMI or contralateral changes [] Radiology/Procedures: Radiology/Procedures: [][place] [id number] IMAGING REPORT Signed PATIENT: HUE CLEMONS ACCOUNT: [id number] : 1980 LOCATION: ER AGE: 39 SEX: M EXAM STATUS: REG ER ORD. PHYSICIAN: MATHEW AVILES MD REASON: cp PROCEDURE: CHEST PA & LATERAL PA and lateral chest x-rays HISTORY: Chest pain. FINDINGS: Comparison chest x-ray December 17, 2019. Mild cardiomegaly stable. Prominence of the pulmonary vasculature is stable. No pneumothorax, pulmonary opacities or pleural effusions. Bones are unremarkable. IMPRESSION: No acute process. Electronically signed by: Felix Holland MD (01/26/2020 9:12 PM) [id number] DICTATED AND SIGNED BY: FELIX HOLLAND MD DATE: 01/26/202111 CC: SILVIA DUTTA MD; MATHEW AVILES MD ~ Course & Med Decision Making: Course & Med Decision Making Pertinent Labs and Imaging studies reviewed. (See chart for details) Discussed presentation, testing and tx. plan with Dr. Dutta- Admit with cardiology consult. 1. Chest Pain 2. Dysrhythmia 3. Morbid obesity [] Dragon Disclaimer: Dragon Disclaimer: This electronic medical record was generated, in whole or in part, using a voice recognition dictation system. Departure Departure: Disposition: HOME/RESIDENCE PRIOR TO ADM Condition: STABLE Referrals: SILVIA DUTTA MD (PCP) Justification of Admission: Justification of Admission: Justification of Admission Dx: Yes Comments: Chest Pain Dragon Disclaimer This chart was dictated in whole or in part using Voice Recognition software in a busy, high-work load, and often noisy Emergency Department environment. It may contain unintended and wholly unrecognized errors or omissions. Dragon Disclaimer This chart was dictated in whole or in part using Voice Recognition software in a busy, high-work load, and often noisy Emergency Department environment. It may contain unintended and wholly unrecognized errors or omissions. MATHEW AVILES MD Jan 26, 2020 19:41
[2020-01-26] MEDS ORDERED: IV RINGERS SOLUTION,LACTATED 1,000 ML IV SCH (19:42)
[2020-01-26] MEDS ORDERED: ASPIRIN CHEWABLE 81 MG TABLET. PO ONE (19:45)
[2020-01-26] MEDS ORDERED: NITROGLYCERIN OINT 1 GM PACKET. TP ONE (20:15)
[2020-01-26] MEDS ORDERED: ENOXAPARIN ** NOTE DOSE ** SYRINGE SQ ONE (20:15)
[2020-01-26 20:20] LABS: BASO % 1 % (0-3); EOS # 0.1 x10^3/uL (0.0-0.7); EOS % 2 % (0-3); HEMATOCRIT 43.3 % (39.0-53.0); HEMOGLOBIN 14.5 g/dL (13.0-17.5); LYMPH # 1.1 x10^3/uL (1.0-4.8); LYMPH % 17 % (24-48); MEAN CORPUSCULAR HEMOGLOBIN 28 pg (25-35); MEAN CORPUSCULAR HGB CONC 33 g/dL (31-37); MEAN CORPUSCULAR VOLUME 85 fL (79-100); MONO # 0.7 x10^3/uL (0.0-1.1); MONO % 10 % (0-9); NEUT # 4.8 x10^3uL (1.8-7.7); NEUT % 71 % (31-73); PLATELET COUNT 254 x10^3/uL (140-400); RED CELL DISTRIBUTION WIDTH 13.7 % (11.5-14.5); WHITE BLOOD COUNT 6.8 x10^3/uL (4.0-11.0)
[2020-01-26 20:24] LABS: GFR 82.3; POTASSIUM 3.9 mmol/L (3.5-5.1)
[2020-01-26 20:36] LABS: ALBUMIN 3.8 g/dL (3.4-5.0); DIRECT BILIRUBIN 0.2 mg/dL (0.0-0.2); TOTAL BILIRUBIN 0.8 mg/dL (0.2-1.0); TOTAL PROTEIN 7.6 g/dL (6.4-8.2)
--- NOTE | 2020-01-26 21:15 | RAD ---
PA and lateral chest x-rays HISTORY: Chest pain. FINDINGS: Comparison chest x-ray December 17, 2019. Mild cardiomegaly stable. Prominence of the pulmonary vasculature is stable. No pneumothorax, pulmonary opacities or pleural effusions. Bones are unremarkable. IMPRESSION: No acute process. Electronically signed by: Edwin Holland MD (01/26/2020 9:12 PM) [id number]
[2020-01-26] MEDS ORDERED: ACETAMINOPHEN 500 MG TABLET PO PRN (22:30)
[2020-01-26] MEDS ORDERED: ZOLPIDEM 5 MG TABLET. PO PRN (22:30)
[2020-01-26] MEDS: IV RINGERS SOLUTION,LACTATED 1,000 ML IV SCH (22:45)
[2020-01-26] MEDS ORDERED: ONDANSETRON PF 4 MG/2 ML VIAL. IVP PRN (22:45)
[2020-01-26] MEDS ORDERED: ACETAMINOPHEN 325 MG TABLET PO PRN (22:45)
[2020-01-27 00:05] VITALS: BP 164/84
[2020-01-27 00:53] LABS: BGAS PH 7.38 (7.35-7.46)
--- NOTE | 2020-01-27 01:10 | NUR ---
The patient, HUE CLEMONS, 39 y/o, M admitted by SILVIA DUTTA MD, was given written information regarding hospital policies, unit procedures and contact persons. Valuables were checked and noted. PT presented to ER with chest pain, stating this pain has been present for about a month intermittently. Reviewed with PT his PMH, PSH, SH, FH and medications. PT oriented to unit.
--- NOTE | 2020-01-27 01:10 | EKG ---
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
[2020-01-27] MEDS ORDERED: SACU1TAB7 PO (01:19)
[2020-01-27] MEDS: IV RINGERS SOLUTION,LACTATED 1,000 ML IV SCH (04:00)
[2020-01-27 05:44] VITALS: BP 147/76
[2020-01-27 06:41] LABS: BASO % 1 % (0-3); EOS # 0.1 x10^3/uL (0.0-0.7); EOS % 3 % (0-3); HEMATOCRIT 39.3 % (39.0-53.0); HEMOGLOBIN 13.3 g/dL (13.0-17.5); LYMPH # 1.1 x10^3/uL (1.0-4.8); LYMPH % 23 % (24-48); MEAN CORPUSCULAR HEMOGLOBIN 28 pg (25-35); MEAN CORPUSCULAR HGB CONC 34 g/dL (31-37); MEAN CORPUSCULAR VOLUME 84 fL (79-100); MONO # 0.7 x10^3/uL (0.0-1.1); MONO % 13 % (0-9); NEUT % 61 % (31-73); PLATELET COUNT 220 x10^3/uL (140-400); RED BLOOD COUNT 4.67 x10^6/uL (4.30-5.70); RED CELL DISTRIBUTION WIDTH 14.4 % (11.5-14.5); WHITE BLOOD COUNT 4.9 x10^3/uL (4.0-11.0)
[2020-01-27 06:48] LABS: CALCIUM 8.4 mg/dL (8.5-10.1); CREATININE 0.9 mg/dL (0.7-1.3); POTASSIUM 3.8 mmol/L (3.5-5.1)
[2020-01-27] MEDS ORDERED: ASPIRIN 325 MG TABLET PO SCH (08:00)
[2020-01-27] MEDS ORDERED: ASPIRIN ENTERIC COATED 81 MG TABLET.DR. PO SCH (08:00)
--- NOTE | 2020-01-27 08:32 | PDOC2 ---
CESAR CASTELLANOS CHIEF GAUGER 01/27/20 0832: CARDIAC CONSULT DATE OF CONSULT DOS: DATE: 01/27/20 TIME: 08:26 REASON FOR CONSULT Reason for Consult Chest pain REFERRING PHYSICIAN Referring Physician Dr. Ellsworth SOURCE Source: Chart review, Patient HPI History of Present Illness This is a 39 yo male who presented secondary to chest tightness. Began yesterday. Radiated to his shoulder. Could tell that his blood pressure was up as this is how he usually feels when it is elevated. Reports compliance with meds. No palpitations, dizziness, diaphoresis, or nausea/vomiting. Feels slightly SOA this morning and is fatigued as he did not sleep well the last couple of night. Blood pressure significantly elevated upon arrival to the ED. Follow with Dr. Napoles in clinic. no recent fevers, illness. PAST MEDICAL HISTORY Cardiovascular: CHF, HTN PAST SURGICAL HISTORY Past Surgical History: Tonsillectomy FAMILY HISTORY Family History: Heart Disease, Hypertension SOCIAL HISTORY Smoke: No ALCOHOL: occassional Drugs: None CURRENT MEDICATIONS Current Medications Current Medications Aspirin (Aspirin Chewable) 324 mg 1X ONCE PO Last administered on 01/26/20at 20:02; Start 01/26/20 at 19:45; Stop 01/26/20 at 20:03; Status DC Lactated Ringer's 1,000 ml @ 1,000 mls/hr Q1H IV Last administered on 01/26/20at 20:02; Start 01/26/20 at 19:42; Stop 01/26/20 at 20:41; Status DC Enoxaparin Sodium (Lovenox 100mg Syringe) 190 mg 1X ONCE SQ Last administered on 01/26/20at 20:15; Start 01/26/20 at 20:15; Stop 01/26/20 at 20:16; Status DC Nitroglycerin (Nitro-Bid Oint) 1 inch 1X ONCE TP Last administered on 01/26/20at 20:15; Start 01/26/20 at 20:15; Stop 01/26/20 at 20:16; Status DC Aspirin (Aspirin Enteric Coated) 81 mg DAILYWBKFT PO Last administered on 01/26at 08:16; Start 01/27/20 at 08:00 Furosemide (Lasix) 40 mg DAILY PO Last administered on 01/27/20at 08:16; Start 01/27/20 at 09:00 Labetalol HCl (Trandate) 200 mg BID PO Last administered on 01/27/20at 08:17; Start 01/27/20 at 09:00 Lisinopril (Prinivil) 20 mg DAILY PO Last administered on 01/27/20at 08:17; Start 01/27/20 at 09:00 Zolpidem Tartrate (Ambien) 5 mg PRN QHS PRN PO INSOMNIA, MAY REPEAT IN 1HR; Start 01/26/20 at 22:30 Acetaminophen (Tylenol) 1,000 mg PRN Q6HRS PRN PO MILD PAIN / TEMP > 100.3'F; Start 01/26/20 at 22:30 Nifedipine (Procardia Xl) 30 mg 1X ONCE PO ; Start 01/26/20 at 22:30; Stop 01/26/20 at 22:47; Status DC Nifedipine (Procardia Xl) 30 mg 1X ONCE PO Last administered on 01/27/20at 00:01; Start 01/26/20 at 22:45; Stop 01/26/20 at 22:48; Status DC Ondansetron HCl (Zofran) 4 mg PRN Q4HRS PRN IVP NAUSEA/VOMITING; Start 01/26/20 at 22:45; Stop 01/27/20 at 22:44 Acetaminophen (Tylenol) 650 mg PRN Q4HRS PRN PO FEVER > 100.3'F; Start 01/26/20 at 22:45; Stop 01/26/20 at 23:30; Status DC Lactated Ringer's 1,000 ml @ 160 mls/hr Q6H15M IV Last administered on 01/27/20at 04:00; Start 01/26/20 at 22:45 Aspirin (Beckie Aspirin) 81 mg DAILYWBKFT PO ; Start 01/27/20 at 08:00; Stop 01/26/20 at 23:30; Status DC Enoxaparin Sodium (Lovenox 100mg Syringe) 190 mg BID SQ Last administered on 01/27/20at 08:18; Start 01/27/20 at 09:00 Influenza Virus Vaccine Quadrival (Fluzone Quad Syringe) 0.5 ml ONCE ONCE VAX IM ; Start 01/27/20 at 09:00; Stop 9/23/20 at 09:01 Active Scripts Active Reported Entresto 49 mg-51 mg Tablet (Sacubitril/Valsartan) 1 Each Tablet 1 Each PO BID Lasix (Furosemide) 40 Mg Tablet 1 Tab PO DAILY Lisinopril 20 Mg Tablet 1 Tab PO DAILY Labetalol Hcl 200 Mg Tablet 1 Tab PO BID Aspirin Ec (Aspirin) 81 Mg Tablet. 1 Tab PO DAILY ALLERGIES Allergies: Coded Allergies: No Known Drug Allergies (Unverified , 06/21/18) ROS Review of Systems 14 point ROS conducted with pertinent positives noted above in hPI PHYSICAL EXAM General: Alert, Oriented X3, Cooperative, No acute distress HEENT: Atraumatic, Mucous membr. moist/pink Lungs: Other (diminished bases) Heart: Regular rate Abdomen: Soft, No tenderness, Other (obese) Extremities: Other (1+ bilateral LE edema ) Neuro: Normal speech, Sensation intact Psych/Mental Status: Mental status NL, Mood NL, Other (appears fatigued, sleepy) MUSCULOSKELETAL: Osteoarthritic changes both hands VITALS Vital Signs Vital Signs Date Time Temp Pulse Resp B/P (MAP) Pulse Ox O2 Delivery O2 Flow Rate FiO2 01/27/20 08:17 63 147/76 01/27/20 05:44 97.8 20 94 Room Air LABS LABS Laboratory Tests Test 01/26/20 19:47 01/26/20 20:01 01/27/20 06:10 White Blood Count 6.8 x10^3/uL (4.0-11.0) 4.9 x10^3/uL (4.0-11.0) Red Blood Count 5.10 x10^6/uL (4.30-5.70) 4.67 x10^6/uL (4.30-5.70) Hemoglobin 14.5 g/dL (13.0-17.5) 13.3 g/dL (13.0-17.5) Hematocrit 43.3 % (39.0-53.0) 39.3 % (39.0-53.0) Mean Corpuscular Volume 85 fL (79-100) 84 fL (79-100) Mean Corpuscular Hemoglobin 28 pg (25-35) 28 pg (25-35) Mean Corpuscular Hemoglobin Concent 33 g/dL (31-37) 34 g/dL (31-37) Red Cell Distribution Width 13.7 % (11.5-14.5) 14.4 % (11.5-14.5) Platelet Count 254 x10^3/uL (140-400) 220 x10^3/uL (140-400) Neutrophils (%) (Auto) 71 % (31-73) 61 % (31-73) Lymphocytes (%) (Auto) 17 % (24-48) 23 % (24-48) Monocytes (%) (Auto) 10 % (0-9) 13 % (0-9) Eosinophils (%) (Auto) 2 % (0-3) 3 % (0-3) Basophils (%) (Auto) 1 % (0-3) 1 % (0-3) Neutrophils # (Auto) 4.8 x10^3uL (1.8-7.7) 3.0 x10^3uL (1.8-7.7) Lymphocytes # (Auto) 1.1 x10^3/uL (1.0-4.8) 1.1 x10^3/uL (1.0-4.8) Monocytes # (Auto) 0.7 x10^3/uL (0.0-1.1) 0.7 x10^3/uL (0.0-1.1) Eosinophils # (Auto) 0.1 x10^3/uL (0.0-0.7) 0.1 x10^3/uL (0.0-0.7) Basophils # (Auto) 0.0 x10^3/uL (0.0-0.2) 0.0 x10^3/uL (0.0-0.2) Prothrombin Time 10.6 SEC (9.4-11.4) Prothromb Time International Ratio 1.0 (0.9-1.1) Activated Partial Thromboplast Time 30 SEC (23-33) D-Dimer (Bella) < 0.19 mg/L (0.00-0.50) Sodium Level 140 mmol/L (136-145) 140 mmol/L (136-145) Potassium Level 3.9 mmol/L (3.5-5.1) 3.8 mmol/L (3.5-5.1) Chloride Level 104 mmol/L (98-107) 106 mmol/L (98-107) Carbon Dioxide Level 25 mmol/L (21-32) 25 mmol/L (21-32) Anion Gap 11 (6-14) 9 (6-14) Blood Urea Nitrogen 11 mg/dL (8-26) 10 mg/dL (8-26) Creatinine 1.0 mg/dL (0.7-1.3) 0.9 mg/dL (0.7-1.3) Estimated GFR (Cockcroft-Gault) 82.3 93.0 Glucose Level 96 mg/dL (70-99) 96 mg/dL (70-99) Calcium Level 9.0 mg/dL (8.5-10.1) 8.4 mg/dL (8.5-10.1) Magnesium Level 2.0 mg/dL (1.8-2.4) Total Bilirubin 0.8 mg/dL (0.2-1.0) Direct Bilirubin 0.2 mg/dL (0.0-0.2) Aspartate Amino Transf (AST/SGOT) 7 U/L (15-37) Alanine Aminotransferase (ALT/SGPT) 10 U/L (16-63) Alkaline Phosphatase 72 U/L (46-116) Creatine Kinase 42 U/L (39-308) Troponin I Quantitative < 0.017 ng/mL (0-0.055) DT-Fut-J-Type Natriuretic Peptide 158 pg/mL (0-124) Total Protein 7.6 g/dL (6.4-8.2) Albumin 3.8 g/dL (3.4-5.0) Lipase 52 U/L (73-393) Blood Gas pH 7.38 (7.35-7.46) Blood Gas PCO2 38 mmHg (35-46) Blood Gas PO2 81 mmHg (80-100) Blood Gas HCO3 23 mmol/L (21-28) Arterial Bld O2 Saturation (Calc) 96 % (92-99) FiO2 21 % ECHOCARDIOGRAM Echocardiogram <Conclusion> The systolic function is moderately impaired. The Ejection Fraction is grossly 40%. Significantly limited images despite contrast use. Doppler and Color Flow revealed trace tricuspid regurgitation. There is moderate pulmonary hypertension. PASP is 56 mmHg. DATE: 11/06/17722 HEART CATH Heart Cath FINDINGS 1. Hemodynamics: Left ventricular end-diastolic pressure of 12 mmHg. No pullback gradient across the aortic valve. 2. Left ventriculography: Mild left ventricle systolic dysfunction with ejection fraction estimated at 45%. No significant mitral regurgitation seen. 3. Coronary angiography: a. The left main coronary artery arose from the left sinus of Valsalva, gave rise to the left anterior descending and left circumflex arteries and did not show any significant stenosis. b. The left anterior descending artery did not show any significant stenosis. c. The left circumflex artery did not show any significant stenosis. d. The right coronary artery was a large and dominant vessel arising from the right sinus of Valsalva that did not show any significant stenosis. Conclusion 1. No significant coronary artery disease. 2. Mild left ventricle systolic dysfunction with ejection fraction estimated at 45% Recommendations Medical Therapy DATE: 12/02/17 1045 ASSESSMENT/PLAN Assessment/Plan 1. Chest pain, atypical in the setting of #2; cath 11/20 without significant CAD 2. Hypertensive urgency; remains elevated 3. NICM; LVEF 2018 at 40% as noted above 4. Mild acute on chronic systolic CHF 5. Morbid obesity 6. Venous insufficiency; compression stockings Recommendations Resume home antiHTN therapy; titrate as warranted Discontinue lisinopril (patient has been on Entresto at home) Resume Entresto in 36 hrs. Stop IVFs Will give dose of IV Lasix Lipids, TSH Trend trop ASA therapy Can likely discharge later this afternoon if BP better controlled Outpatient echo and venous reflux as ordered along with f/u with Dr. Napoles as scheduled AVA LIMA MD 01/27/20 1503: CARDIAC CONSULT ASSESSMENT/PLAN Assessment/Plan Patient seen, examined, I agree with above. Assessment and plan was formulated with CUSTODY ASSISTANT. CESAR CASTELLANOS APRN Jan 27, 2020 08:32 AVA LIMA MD Jan 27, 2020 15:03
[2020-01-27] MEDS ORDERED: FLU VACC QS 2020-21(6MOS+)/PF 0.5 ML SYRINGE. VAX IM ONE (09:00)
[2020-01-27] MEDS ORDERED: LISINOPRIL 20 MG TABLET PO SCH (09:00)
[2020-01-27] MEDS ORDERED: ENOXAPARIN ** NOTE DOSE ** SYRINGE SQ SCH (09:00)
[2020-01-27] MEDS ORDERED: FUROSEMIDE 40 MG TABLET PO SCH (09:00)
[2020-01-27] MEDS ORDERED: LABETALOL HCL 200 MG TABLET PO SCH (09:00)
[2020-01-27 09:16] LABS: AMPHETAMINE/METHAMPHETAMINE NEG (NEG); BARBITURATES NEG (NEG); BENZODIAZEPINES NEG (NEG); CANNABINOIDS NEG (NEG); COCAINE NEG (NEG); METHADONE NEG (NEG); OPIATES NEG (NEG); PHENCYCLIDINE NEG (NEG)
[2020-01-27 09:21] LABS: BACTERIA,URINE 0 /HPF (0-FEW); BILIRUBIN,URINE NEG (NEG); CLARITY,URINE CLEAR; COLOR,URINE YELLOW; GLUCOSE,URINE NEG (NEG); NITRITE,URINE NEG (NEG); RBC,URINE 0 /HPF (0-2); SQUAMOUS EPITHELIAL CELL,UR OCC /LPF; UROBILINOGEN,URINE 0.2 mg/dL (0.2 mg/dL); WBC,URINE OCC /HPF (0-4)
[2020-01-27] MEDS ORDERED: FUROSEMIDE 40 MG/4 ML VIAL IVP ONE (11:10)
[2020-01-27 11:12] VITALS: BP 145/79
--- NOTE | 2020-01-27 11:38 | HP ---
ADMIT DATE: 01/26/2020 HISTORY OF PRESENT ILLNESS: A 39-year-old male came in through the Emergency Room, who apparently was having some chest tightness and chest discomfort. The patient has a long history of coronary artery disease. The patient noted there was some radiation to the neck and down the arms. The patient had significant medical history. He has had a long history of angina, congestive heart failure, on Entresto himself. As a result of this and coming through the Emergency Room, the patient was admitted for further evaluation and rule out [place] protocol. Cardiology consultation. The patient had off and on chest discomfort in the last 2 weeks. PAST MEDICAL AND SURGICAL HISTORY: As indicated, tonsillectomy, angina, CHF, PVD, severe morbid obesity, cardiac catheterization, hypertension, dyspnea, kidney stones. FAMILY HISTORY: Father with atrial fibrillation, brother and mother suicide, and a brother with hypertension and in the father as well as cardiovascular disease, cancer in the mother. ALLERGIES: The patient has no known drug allergies. HOME MEDICATIONS: Include labetalol 200 mg, lisinopril 20, Entresto for some reason he is on bolus, aspirin and furosemide. SOCIAL HISTORY: The patient denies smoking, alcohol or drug use. REVIEW OF SYSTEMS: As noted chest tightness, sometimes at rest, sometimes with exertion. The patient has radiation of pain. He denies any nausea, vomiting, diaphoresis, problem with bowels or bladder. No neurological deficits. The patient denies any problem with bowels or bladder. The patient had a heart catheterization back in 11/2017 showed an ejection fraction of 45%. Otherwise, the coronaries were pretty much unremarkable. PHYSICAL EXAMINATION: GENERAL: Pleasant white male, morbidly obese. VITAL SIGNS: Blood pressure 165/78, respiratory rate 20. The patient is afebrile. Blood pressure went as high as 193/110 while he was in the Emergency Room. Good oxygen saturation. HEENT: The patient's head was atraumatic, normocephalic. Eyes: PERRLA without jaundice. The mouth and throat were normal. NECK: Supple. No JVD or thyromegaly. LUNGS: Diminished throughout, but basically diminished, but clear. CARDIOVASCULAR: Regular sinus rhythm. ABDOMEN: Soft, nontender, no rebound or guarding. Positive bowel sounds, markedly protuberant abdomen, morbidly obese. EXTREMITIES: No clubbing, cyanosis. The patient has venous stasis dermatitis to his legs and venous insufficiency. Trace edema noted. NEUROLOGIC: Alert and oriented x 3. LABORATORY DATA: The patient's sodium and potassium 140, 3.9, 11 and 1. Cardiac enzymes negative. BNP of 158. Lipase was low. Hematology: 5, 13 and 39. Blood gases: 7.38, 38, and pO2 of 81. Coags: Negative. Tox: Negative. Urine: Unremarkable. IMPRESSION: Angina, history of coronary artery disease, ischemic and nonischemic cardiomyopathy, severe morbid obesity, history of congestive heart failure, and essential hypertension. The patient denied any suicidal or homicidal ideations. The patient also noted his weight to be 193 kilos. In any case, the patient was admitted to rule out WA protocol. Cardiology to review. He will walk around a little bit. If all goes well, we will have him discharged home and follow up with Dr. 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 SILVIA DUTTA MD DR: RAMESH/la nena JOB#: [id number] / [id number]
--- NOTE | 2020-01-27 12:53 | DS ---
DATE OF DISCHARGE: HOSPITAL COURSE: A 39-year-old male came in through the Emergency Room with chest tightness and chest discomfort, has a long history of coronary artery disease, some radiation of the chest discomfort up to his neck and down his arms. He has a significant medical history and history of congestive heart failure and the patient was already on Entresto. He was admitted for rule out [place] protocol. He was seen by Cardiology who increased and gave one dose of Lasix. His blood pressure was on the high side 147/76, respiratory rate 20, pulse 63, afebrile. The patient's CBC was perfectly normal. The chemistries; sodium 140, potassium 3.9, BUN and creatinine 11 and 1. BNP of 558. Lipase normal. Cardiac enzymes negative. Blood gases were good. Urine was unremarkable. Tox negative. The patient had a chest x-ray, which was normal with no acute process noted. The patient in turn made good progress. He was given one dose of Lasix per cardiology's ____ and then was discharged home for followup as an outpatient. He will follow up with his special events director continued. He was on for some reason on lisinopril. He will hold that off for 36 hours before restarting his Entresto. IMPRESSION: Chest pain, possible angina, morbid obesity, type 2 diabetes. We will go ahead and continue to monitor him as an outpatient. He will be on a heart healthy diabetic diet and make further evaluation at that time. SILVIA DUTTA MD DR: RAMESH/la nena JOB#: [id number] / [id number]
[2020-01-27] MEDS ORDERED: HYDR-2869 PO (13:11)
--- NOTE | 2020-01-27 14:08 | NUR ---
PATIENT IS DISCHARGED HOME. DISCHARGED INSTRUCTIONS AND PRESCRIBED MEDICATIONS REVIEWED, PATIENT VERBALIZED UNDERSTANDING. PATIENT LEFT ROOM 121 VIA AMBULATION ACCOMPANIED BY SELF. PATIENT IS TAKEN HOME BY HIS FATHER VIA PERSONAL VEHICLE.
[2020-01-27 20:09] LABS: THYROID STIM HORMONE (TSH) 2.828 uIU/mL (0.358-3.740)
[2020-01-28] MEDS ORDERED: SACUBITRIL/VALSARTAN 49/51MG TABLET. PO SCH (21:00)
== END 2020-01-27 13:50 | disposition home or self-care (01) ==
LOC: ER 19:39 → 1 SOUTH 23:26
PROVIDERS: ADMIT Family Medicine; ATTEND Family Medicine
DX: I20.9 Angina pectoris, unspecified (principal); I25.5 Ischemic cardiomyopathy; I42.8 Other cardiomyopathies; I16.0 Hypertensive urgency; I11.0 Hypertensive heart disease with heart failure; I50.23 Acute on chronic systolic (congestive) heart failure; E66.01 Morbid (severe) obesity due to excess calories; I73.9 Peripheral vascular disease, unspecified; R06.00 Dyspnea, unspecified; Z87.442 Personal history of urinary calculi; Z79.82 Long term (current) use of aspirin; Z95.1 Presence of aortocoronary bypass graft; Z90.49 Acquired absence of other specified parts of digestive tract; Z23 Encounter for immunization; Z79.899 Other long term (current) drug therapy; Z68.43 Body mass index [BMI] 50.0-59.9, adult
CPT/HCPCS: 36415; 71046; 80048; 80061; 80076; 80307; 81001; 82550; 82803; 83690; 83735; 83880; 84443; 84484; 85025; 85379; 85610; 85730; 90471; 90686; 93005; 94640; 96361; 96372; 96374; 97116; 97162; 99285; G0378; J1650; J1940; J7120; G0379

== ENCOUNTER 2020-04-14 22:01 | Emergency (ER) | payer BC ==
[~2020-04-14] VITALS: Ht 182.9 cm; Wt 177.2 kg
[~2020-04-14 22:01] MED LIST changes: +HYDR-2869 PO; +SACU1TAB7 PO
--- NOTE | 2020-04-14 22:04 | PHYS DOC ---
Past History Past Medical History: Angina, CHF, Hypertension, Kidney Stones Past Surgical History: Tonsillectomy Smoking: Non-smoker Alcohol Use: None Drug Use: None, Opiates General Adult HPI: HPI: ".. I was feeling off... and I took my BP and it was up... and had some funny feeling in my chest... verónica constant all day... .. " " I see Dr. Napoles.. and he did a echo in and it was okay.. I just wanted to get checked out..." Patient is a 39 year old male who presents with above hx and complaints chest pain, hypertension. Patient has past medical history of angina, CHF, peripheral vascular disease, morbid obesity, cardiac catheterization for evaluation of angina, hypertension, periodic complaints of dyspnea, kidney stones, CHF, and peripheral vascular disease. Patient states he been compliant with home meds. Stated he checked his blood pressure is elevated at home. Patient has not verified his blood pressure cuff reads the same as doctor's office. On arrival had mildly elevated blood pressure . The pt. follows with Dr. Zackary alarcon and Dr. Napoles for cardiac issues. Review of Systems: Review of Systems: Constitutional: Denies fever or chills Eyes: Denies change in visual acuity HENT: Denies nasal congestion or sore throat Respiratory: Denies cough or shortness of breath Cardiovascular: Complains of chest discomfort. Complaints of hypertension. GI: Denies abdominal pain, nausea, vomiting, bloody stools or diarrhea : Denies dysuria Musculoskeletal: Denies back pain or joint pain Integument: Denies rash Neurologic: Denies headache, focal weakness or sensory changes Endocrine: Denies polyuria or polydipsia Lymphatic: Denies swollen glands Psychiatric: Denies depression or anxiety Family History: Family History: Family history Father has history of A. fib, brother and mother had of suicide. Does have 1 brother has hypertension. There is history of cancer on his mother side. Current Medications: Current Meds: See nursing for home meds Allergies: Allergies: Allergies Coded Allergies Type Severity Reaction Last Updated Verified No Known Drug Allergies 06/21/18 No Physical Exam: PE: Constitutional: , no acute distress, non-toxic appearance. [] HENT: Normocephalic, atraumatic, bilateral external ears normal, oropharynx moist, no oral exudates, nose normal. [] Eyes: PERRLA, EOMI, conjunctiva normal, no discharge. [] Neck: Normal range of motion, no tenderness, supple, no stridor. [] Cardiovascular:Heart rate regular rhythm, no murmur, PMI to the left Lungs & Thorax: Bilateral breath sounds equal apex but bilateral crackles in bases on auscultation. There are few scattered wheezes. Abdomen: Bowel sounds normal, soft, no tenderness, no masses, no pulsatile masses. Morbidly obese. Skin: Warm, dry, no erythema, no rash. [] Back: No tenderness, no CVA tenderness. [] Extremities: No tenderness, no cyanosis, no clubbing, ROM intact, bilateral lower leg edema. Stasis changes Neurologic: Alert and oriented X 3, normal motor function, normal sensory function, no focal deficits noted. [] Psychologic: Affect anxious, judgement normal, mood normal. [] EKG: EKG: My interpretation EKG shows a sinus rhythm at 66 bpm. There is some leftward axis changes. Otherwise normal EKG. No findings of acute STEMI or morphology. [] Radiology/Procedures: Radiology/Procedures: [[address] [address] IMAGING REPORT Signed PATIENT: HUE CLEMONS ACCOUNT: [id number] : 1980 LOCATION: ER AGE: 39 SEX: M EXAM STATUS: REG ER ORD. PHYSICIAN: MATHEW AVILES MD REASON: chest pain PROCEDURE: PORTABLE CHEST 1V Exam: Chest one view INDICATION: Chest pain TECHNIQUE: Frontal view of the chest Comparisons: 01/26/2020 FINDINGS: Heart is mildly enlarged. Pulmonary vessels are within normal limits. Hazy opacity lung bases bilaterally. No pleural effusion. IMPRESSION: No acute pulmonary process. Electronically signed by: Venu Wheat MD (04/14/2020 10:49 PM) [facility] DICTATED AND SIGNED BY: VENU WHEAT MD DATE: 04/14/20 2248 CC: SILVIA DUTTA MD; MATHEW AVILES MD ~[facility]0 0 ][address] [address] IMAGING REPORT Signed PATIENT: HUE CLEMONS ACCOUNT: [id number] : 1980 LOCATION: ER AGE: 39 SEX: M EXAM STATUS: REG ER ORD. PHYSICIAN: MATHEW AVILES MD REASON: chest pain PROCEDURE: PORTABLE CHEST 1V Exam: Chest one view INDICATION: Chest pain TECHNIQUE: Frontal view of the chest Comparisons: 01/26/2020 FINDINGS: Heart is mildly enlarged. Pulmonary vessels are within normal limits. Hazy opacity lung bases bilaterally. No pleural effusion. IMPRESSION: No acute pulmonary process. Electronically signed by: Venu Wheat MD (04/14/2020 10:49 PM) [facility] DICTATED AND SIGNED BY: VENU WHEAT MD DATE: 04/14/20 2248 CC: SILVIA DUTTA MD; MATHEW AVILES MD ~MTH0 0 Heart Score: HEART Score for Chest Pain: HEART Score for Chest Pain Response (Comments) Value History Slighlty/Non-Suspicious 0 ECG Normal 0 Age < 45 0 Risk Factors 1 or 2 Risk Factors 1 Troponin < Normal Limit 0 Total 1 Risk Factors: Risk Factors: DM, Current or recent (<one month) smoker, HTN, HLP, family history of CAD, obesity. Risk Scores: Score 0 - 3: 2.5% MACE over next 6 weeks - Discharge Home Score 4 - 6: 20.3% MACE over next 6 weeks - Admit for Clinical Observation Score 7 - 10: 72.7% MACE over next 6 weeks - Early Invasive Strategies Course & Med Decision Making: Course & Med Decision Making Pertinent Labs and Imaging studies reviewed. (See chart for details) Patient continue meds as previous directed. Patient follow-up with Dr. eCdeno. Patient follow-up with Dr. Napoles. Patient to confirm that his blood pressure cuff at home was reading the same blood pressure he has in the doctor's office. Take his blood pressure cuff in and compare it at the same time to blood pressures in the office. Patient return if any concerns. Must follow-up. Impression: 1. Chest Discomfort 2. Hypertension 2. Mobid Obesity [] Dragon Disclaimer: Dragon Disclaimer: This electronic medical record was generated, in whole or in part, using a voice recognition dictation system. Departure Departure: Referrals: SILVIA DUTTA MD (PCP) Manjinder Disclaimer This chart was dictated in whole or in part using Voice Recognition software in a busy, high-work load, and often noisy Emergency Department environment. It may contain unintended and wholly unrecognized errors or omissions. MATHEW AVILES MD Apr 14, 2020 22:03
[2020-04-14] MEDS: ASPIRIN CHEWABLE 81 MG TABLET. PO ONE (22:30)
--- NOTE | 2020-04-14 22:52 | RAD ---
Exam: Chest one view INDICATION: Chest pain TECHNIQUE: Frontal view of the chest Comparisons: 01/26/2020 FINDINGS: Heart is mildly enlarged. Pulmonary vessels are within normal limits. Hazy opacity lung bases bilaterally. No pleural effusion. IMPRESSION: No acute pulmonary process. Electronically signed by: Venu Lezama MD (04/14/2020 10:49 PM) BILL
[2020-04-14] MEDS: IV RINGERS SOLUTION,LACTATED 1,000 ML IV SCH (23:09)
[2020-04-14] MEDS: cloNIDine HCL 0.1 MG TABLET PO ONE (23:11)
--- NOTE | 2020-04-14 23:15 | EKG ---
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
[2020-04-14 23:49] LABS: BASO % 1 % (0-3); EOS # 0.2 x10^3/uL (0.0-0.7); EOS % 3 % (0-3); HEMATOCRIT 38.7 % (39.0-53.0); HEMOGLOBIN 12.8 g/dL (13.0-17.5); LYMPH # 1.3 x10^3/uL (1.0-4.8); LYMPH % 21 % (24-48); MEAN CORPUSCULAR HEMOGLOBIN 28 pg (25-35); MEAN CORPUSCULAR HGB CONC 33 g/dL (31-37); MEAN CORPUSCULAR VOLUME 84 fL (79-100); MONO # 0.7 x10^3/uL (0.0-1.1); MONO % 11 % (0-9); NEUT % 65 % (31-73); PLATELET COUNT 258 x10^3/uL (140-400); RED BLOOD COUNT 4.59 x10^6/uL (4.30-5.70); RED CELL DISTRIBUTION WIDTH 14.4 % (11.5-14.5); WHITE BLOOD COUNT 6.2 x10^3/uL (4.0-11.0)
[2020-04-14 23:58] LABS: CALCIUM 8.5 mg/dL (8.5-10.1); GFR 82.3; POTASSIUM 3.7 mmol/L (3.5-5.1)
[2020-04-15 00:10] LABS: ALBUMIN 3.4 g/dL (3.4-5.0); DIRECT BILIRUBIN 0.1 mg/dL (0.0-0.2); MAGNESIUM 1.9 mg/dL (1.8-2.4); TOTAL BILIRUBIN 0.7 mg/dL (0.2-1.0); TOTAL PROTEIN 6.8 g/dL (6.4-8.2)
[2020-04-15 01:43] VITALS: BP 123/73
[2020-04-15 02:17] LABS: BARBITURATES NEG (NEG); BENZODIAZEPINES NEG (NEG); CANNABINOIDS NEG (NEG); COCAINE NEG (NEG); METHADONE NEG (NEG); OPIATES NEG (NEG); PHENCYCLIDINE NEG (NEG)
[2020-04-15 02:22] LABS: BACTERIA,URINE 0 /HPF (0-FEW); BILIRUBIN,URINE NEG (NEG); CLARITY,URINE CLEAR; COLOR,URINE YELLOW; GLUCOSE,URINE NEG (NEG); NITRITE,URINE NEG (NEG); RBC,URINE 0 /HPF (0-2); SQUAMOUS EPITHELIAL CELL,UR OCC /LPF; UROBILINOGEN,URINE 0.2 mg/dL (0.2 mg/dL); WBC,URINE OCC /HPF (0-4)
[2020-04-15 02:25] LABS: AMPHETAMINE/METHAMPHETAMINE NEG (NEG)
[2020-04-15 14:41] LABS: THYROID STIM HORMONE (TSH) 3.206 uIU/mL (0.358-3.740)
== END 2020-04-15 03:05 | disposition home or self-care (01) ==
LOC: ER 22:01
DX: R07.89 Other chest pain (principal); E66.01 Morbid (severe) obesity due to excess calories; R60.0 Localized edema; I11.0 Hypertensive heart disease with heart failure; I50.9 Heart failure, unspecified; Z87.442 Personal history of urinary calculi; Z68.43 Body mass index [BMI] 50.0-59.9, adult
CPT/HCPCS: 36415; 71045; 80048; 80061; 80076; 80307; 81001; 82550; 83690; 83735; 83880; 84443; 84484; 85025; 85379; 85610; 85730; 93005; 96360; 96361; 99285; J7120